=== PATIENT | male | born 1940 | race Caucasian/White ===

== ENCOUNTER 2016-09-17 11:23 | Outpatient (CLI) | payer MEDICARE, BC | END 2016-09-17 11:24 | disposition home or self-care (01) | DX: E11.9 Type 2 diabetes mellitus without complications (principal); E78.2 Mixed hyperlipidemia ==

== ENCOUNTER 2017-02-04 08:00 | Outpatient (CLI) | payer MEDICARE, BC ==
[2017-02-04 19:24] LABS: BUN - BLOOD UREA NITROGEN 18 mg/dL (6-20); CALCIUM 9.7 mg/dL (8.5-10.3); CARBON DIOXIDE - CO2 28 mmol/L (21-32); CHLORIDE 95 mmol/L (101-111); CHOL/HDL RATIO 5.4 (<5.0); CHOLESTEROL 209 mg/dL; GFR - MDRD 72 (>89); GLUCOSE 146 mg/dL (70-100); HDL CHOLESTEROL 39 mg/dL; LDL/HDL RATIO 3.2 (<3.6); POTASSIUM 4.1 mmol/L (3.5-5.0); SODIUM 132 mmol/L (135-145); TRIGLYCERIDES 233 mg/dL; VLDL CHOLESTEROL 47 mg/dL
[2017-02-04 19:58] LABS: HEMOGLOBIN A1C 0.76 g/dL
== END 2017-02-04 08:01 | disposition home or self-care (01) ==
LOC: LAB.F 08:00
PROVIDERS: ATTEND Internal Medicine
DX: I10 Essential (primary) hypertension (principal); E78.2 Mixed hyperlipidemia; E11.65 Type 2 diabetes mellitus with hyperglycemia
CPT/HCPCS: 36415; 80048; 80061; 83036

== ENCOUNTER 2017-09-18 10:50 | Outpatient (CLI) | payer MEDICARE, BC ==
[2017-09-18 18:05] LABS: ALBUMIN/GLOBULIN RATIO 1.2 (1.0-2.2); ALKALINE PHOSPHATASE 49 IU/L (42-121); ALT ALANINE AMINOTRANSFERASE 11 IU/L (10-60); AST ASPARTATE AMINOTRANSFERASE 19 IU/L (10-42); BILIRUBIN,TOTAL 0.9 mg/dL (0.2-1.0); BUN - BLOOD UREA NITROGEN 19 mg/dL (6-20); CALCIUM 9.4 mg/dL (8.5-10.3); CARBON DIOXIDE - CO2 28 mmol/L (21-32); CHLORIDE 93 mmol/L (101-111); CHOL/HDL RATIO 5.3 (<5.0); CHOLESTEROL 191 mg/dL; CREATININE 0.9 mg/dL (0.6-1.2); GFR - MDRD 82 (>89); GLUCOSE 151 mg/dL (70-100); HDL CHOLESTEROL 36 mg/dL; LDL CHOLESTEROL,CALCULATED 115 mg/dL; LDL/HDL RATIO 3.2 (<3.6); SODIUM 130 mmol/L (135-145); TOTAL PROTEIN 7.4 g/dL (6.7-8.2); VLDL CHOLESTEROL 40 mg/dL
[2017-09-18 18:08] LABS: HB2 TOTAL 12.6 g/dL; HEMOGLOBIN A1C 0.74 g/dL; HEMOGLOBIN A1C % 7.5 % (4.6-6.2)
== END 2017-09-18 10:51 | disposition home or self-care (01) ==
LOC: LAB.F 10:50
PROVIDERS: ATTEND Internal Medicine
DX: E11.65 Type 2 diabetes mellitus with hyperglycemia (principal)
CPT/HCPCS: 36415; 80053; 80061; 83036; 83721; 84443

== ENCOUNTER 2018-08-26 10:30 | Outpatient (CLI) | payer MEDICARE, BC ==
[2018-08-26 17:58] LABS: CREATININE,URINE 92.1 mg/dL; MICROALBUM/CREATININE RATIO,UR 236.7 ug/mg (<30.0); MICROALBUMIN,URINE 21.8 mg/dL (0-300.0)
[2018-08-26 18:04] LABS: ALBUMIN/GLOBULIN RATIO 1.2 (1.0-2.2); ALKALINE PHOSPHATASE 52 IU/L (42-121); ALT ALANINE AMINOTRANSFERASE 14 IU/L (10-60); AST ASPARTATE AMINOTRANSFERASE 23 IU/L (10-42); BILIRUBIN,TOTAL 0.8 mg/dL (0.2-1.0); BUN - BLOOD UREA NITROGEN 19 mg/dL (6-20); CALCIUM 9.5 mg/dL (8.5-10.3); CARBON DIOXIDE - CO2 27 mmol/L (21-32); CHLORIDE 94 mmol/L (101-111); CHOL/HDL RATIO 5.8 (<5.0); CHOLESTEROL 207 mg/dL; CREATININE 1.1 mg/dL (0.6-1.2); GFR - MDRD 65 (>89); GLUCOSE 190 mg/dL (70-100); HDL CHOLESTEROL 36 mg/dL; LDL CHOLESTEROL,CALCULATED 110 mg/dL; LDL/HDL RATIO 3.1 (<3.6); SODIUM 129 mmol/L (135-145); TOTAL PROTEIN 7.3 g/dL (6.7-8.2); VLDL CHOLESTEROL 61 mg/dL
[2018-08-26 18:45] LABS: HEMOGLOBIN A1C 0.64 g/dL
== END 2018-08-26 10:31 | disposition home or self-care (01) ==
LOC: LAB.F 10:30
PROVIDERS: ATTEND Internal Medicine
DX: E11.65 Type 2 diabetes mellitus with hyperglycemia (principal)
CPT/HCPCS: 36415; 80053; 80061; 82043; 82570; 83036; 83721

== ENCOUNTER 2018-09-03 12:59 | Outpatient (CLI) | payer MEDICARE, BC ==
--- NOTE | 2018-09-03 15:40 | XRAY Report ---
Reason: COUGH Procedure Date: 09/03/2018 Accession Number: [id number] / [id number] Procedure: XR - Chest 2 View X-Ray CPT Code: 00159 FULL RESULT: EXAM: CHEST RADIOGRAPHY EXAM DATE: 09/03/2018 01:11 PM. CLINICAL HISTORY: Cough. COMPARISON: XR CHEST PA AND LAT 07/16/2012 1:00 PM. TECHNIQUE: 2 views. FINDINGS: Lungs/Pleura: No focal opacities evident. No pleural effusion. No pneumothorax. Relatively high lung volumes with flat diaphragms, with obstructive lung disease. Mediastinum: Heart and mediastinal contours are unremarkable. Other: None. IMPRESSION: No lobar consolidation. Appearance of the lungs is suggestive of COPD. RADIA
== END 2018-09-03 13:00 | disposition home or self-care (01) ==
LOC: DI 12:59
PROVIDERS: ATTEND Internal Medicine
DX: R05 Cough (principal)
CPT/HCPCS: 71046

== ENCOUNTER 2019-04-13 17:23 | Outpatient (CLI) | payer MEDICARE, BC ==
[2019-04-13 18:38] LABS: BASOPHILS # (AUTO) 0.1 10^3/uL (0.0-0.1); BASOPHILS % (AUTO) 1.2 %; EOSINOPHILS % (AUTO) 0.5 %; LYMPHOCYTES # (AUTO) 1.4 10^3/uL (1.5-3.5); LYMPHOCYTES % (AUTO) 18.6 %; MEAN CORPUSCULAR HEMOGLOBIN 18.3 pg (27.0-31.0); MEAN CORPUSCULAR HGB CONC 27.3 g/dL (32.0-36.0); MEAN CORPUSCULAR VOLUME 66.8 fL (80.0-94.0); MEAN PLATELET VOLUME 9.1 fL (7.4-11.4); MONOCYTES # (AUTO) 0.6 10^3/uL (0.0-1.0); MONOCYTES % (AUTO) 7.6 %; NEUTROPHILS # (AUTO) 5.4 10^3/uL (1.5-6.6); NEUTROPHILS % (AUTO) 71.6 %; PLT - PLATELET COUNT 371 10^3/uL (130-450); RED BLOOD COUNT 3.67 10^6/uL (4.70-6.10); RED CELL DISTRIBUTION WIDTH 18.6 % (12.0-15.0); WHITE BLOOD COUNT 7.5 x10^3/uL (4.8-10.8)
[2019-04-13 18:52] LABS: HGB - HEMOGLOBIN 6.7 g/dL (14.0-18.0)
[2019-04-13 19:10] LABS: ALBUMIN 4.3 g/dL (3.2-5.5); ALBUMIN/GLOBULIN RATIO 1.2 (1.0-2.2); BILIRUBIN,TOTAL 0.6 mg/dL (0.2-1.0); CALCIUM 9.9 mg/dL (8.5-10.3); CREATININE 1.2 mg/dL (0.6-1.2); TOTAL PROTEIN 7.8 g/dL (6.7-8.2)
[2019-04-13 19:34] LABS: HB2 TOTAL 6.5 g/dL; HEMOGLOBIN A1C 0.53 g/dL; HEMOGLOBIN A1C % 9.6 % (4.6-6.2)
--- NOTE | 2019-04-14 12:46 | XRAY Report ---
Reason: SUPRAVENTRICULAR TACHYCARDIA,CODP Procedure Date: 04/13/2019 Accession Number: [id number] / [id number] Procedure: XR - Chest 2 View X-Ray CPT Code: 94993 Final Report FULL RESULT: EXAM: CHEST RADIOGRAPHY EXAM DATE: 04/13/2019 05:35 PM. CLINICAL HISTORY: Supraventricular tachycardia, CODP. COMPARISON: CHEST 2 VIEW 09/03/2018 1:04 PM XR CHEST PA AND LAT 07/16/2012 1:00 PM. TECHNIQUE: 2 views. FINDINGS: Lungs/Pleura: Stable mild hyperinflation. No pulmonary infiltrates or new or acute focal densities. No pleural effusion. No pneumothorax. Mediastinum: Heart and mediastinal contours are unremarkable. Other: Degenerative disease of the spine redemonstrated. IMPRESSION: 1. No acute abnormality or significant change demonstrated. 2. Pulmonary hyperinflation redemonstrated. RADIA
== END 2019-04-13 17:24 | disposition home or self-care (01) ==
LOC: DI 17:23
PROVIDERS: ATTEND Family Medicine
DX: I47.1 Supraventricular tachycardia (principal); J44.9 Chronic obstructive pulmonary disease, unspecified; E11.51 Type 2 diabetes mellitus with diabetic peripheral angiopathy without gangrene; I25.10 Atherosclerotic heart disease of native coronary artery without angina pectoris; R05 Cough; E78.2 Mixed hyperlipidemia; R03.0 Elevated blood-pressure reading, without diagnosis of hypertension
CPT/HCPCS: 71046; 80053; 82550; 83036; 83880; 84443; 84484; 85025

== ENCOUNTER 2021-04-05 12:49 | Outpatient (CLI) | payer MEDICARE, BC ==
[2021-04-05 19:58] LABS: BASOPHILS # (AUTO) 0.1 10^3/uL (0.0-0.1); EOSINOPHILS # (AUTO) 0.1 10^3/uL (0.0-0.7); EOSINOPHILS % (AUTO) 0.7 %; HCT - HEMATOCRIT 34.4 % (42.0-52.0); HGB - HEMOGLOBIN 10.1 g/dL (14.0-18.0); LYMPHOCYTES # (AUTO) 1.7 10^3/uL (1.5-3.5); LYMPHOCYTES % (AUTO) 24.3 %; MEAN CORPUSCULAR HEMOGLOBIN 22.4 pg (27.0-31.0); MEAN CORPUSCULAR HGB CONC 29.4 g/dL (32.0-36.0); MEAN CORPUSCULAR VOLUME 76.4 fL (80.0-94.0); MEAN PLATELET VOLUME 10.4 fL (7.4-11.4); MONOCYTES # (AUTO) 0.5 10^3/uL (0.0-1.0); MONOCYTES % (AUTO) 7.6 %; NEUTROPHILS # (AUTO) 4.7 10^3/uL (1.5-6.6); NEUTROPHILS % (AUTO) 66.1 %; PLT - PLATELET COUNT 328 10^3/uL (130-450); RED CELL DISTRIBUTION WIDTH 17.2 % (12.0-15.0); WHITE BLOOD COUNT 7.1 x10^3/uL (4.8-10.8)
[2021-04-05 20:12] LABS: ALBUMIN 4.2 g/dL (3.2-5.5); ALBUMIN/GLOBULIN RATIO 1.2 (1.0-2.2); ALKALINE PHOSPHATASE 48 IU/L (42-121); ALT ALANINE AMINOTRANSFERASE 13 IU/L (10-60); AST ASPARTATE AMINOTRANSFERASE 18 IU/L (10-42); BUN - BLOOD UREA NITROGEN 20 mg/dL (6-20); CALCIUM 9.6 mg/dL (8.5-10.3); CARBON DIOXIDE - CO2 28 mmol/L (21-32); CHLORIDE 95 mmol/L (101-111); CHOL/HDL RATIO 5.9 (<5.0); CHOLESTEROL 219 mg/dL; CREATININE 1.1 mg/dL (0.6-1.2); GFR - MDRD 64 (>89); GLUCOSE 203 mg/dL (70-100); HDL CHOLESTEROL 37 mg/dL; LDL CHOLESTEROL,CALCULATED 120 mg/dL; LDL/HDL RATIO 3.2 (<3.6); POTASSIUM 3.8 mmol/L (3.5-5.0); SODIUM 133 mmol/L (135-145); TOTAL PROTEIN 7.6 g/dL (6.7-8.2); TRIGLYCERIDES 308 mg/dL; VLDL CHOLESTEROL 62 mg/dL
[2021-04-05 20:20] LABS: ESTIMATED AVERAGE GLUCOSE 223 mg/dL (70-100); HEMOGLOBIN A1c% 9.4 % (4.27-6.07)
== END 2021-04-05 12:50 | disposition home or self-care (01) ==
LOC: LAB.S 12:49
PROVIDERS: ATTEND Internal Medicine
DX: I10 Essential (primary) hypertension (principal); E78.2 Mixed hyperlipidemia; E11.9 Type 2 diabetes mellitus without complications; Z12.5 Encounter for screening for malignant neoplasm of prostate
CPT/HCPCS: 36415; 80053; 80061; 83036; 85025; G0103; 83721; 84153

== ENCOUNTER 2022-06-04 11:42 | Outpatient (CLI) | payer MEDICARE, BC | END 2022-06-04 11:43 | disposition home or self-care (01) | LOC: LAB.S 11:42 | PROVIDERS: ATTEND Registered Nurse | DX: E11.8 Type 2 diabetes mellitus with unspecified complications (principal); D62 Acute posthemorrhagic anemia; R97.20 Elevated prostate specific antigen [PSA] | CPT/HCPCS: 36415; 84153 ==

== ENCOUNTER 2022-10-08 00:52 | Emergency (ER) | payer MEDICARE, BC ==
[2022-10-08 01:24] LABS: BILIRUBIN,URINE NEGATIVE (NEGATIVE); GLUCOSE, URINE (UA) 500 mg/dL (NEGATIVE); KETONES,URINE (UA) NEGATIVE (NEGATIVE); LEUKOCYTE ESTERASE, URINE MODERATE (NEGATIVE); NITRITE,URINE NEGATIVE (NEGATIVE); OCCULT BLOOD,URINE LARGE (NEGATIVE); PH,URINE 6.5 PH (5.0-7.5); PROTEIN,URINE 100 mg/dL (NEGATIVE); UROBILINOGEN,URINE 1 (NORMAL) E.U./dL (NORMAL)
[2022-10-08 01:29] LABS: CLARITY,URINE SL. CLOUDY (CLEAR)
[2022-10-08 01:33] LABS: BACTERIA,URINE Few /HPF (None Seen); RBC,URINE TNTC /HPF (0-5); SQUAMOUS EPITHELIAL CELL,UR RARE Squamous (<= Few)
[2022-10-08 03:24] LABS: BASOPHILS # (AUTO) 0.1 10^3/uL (0.0-0.1); BASOPHILS % (AUTO) 0.6 %; EOSINOPHILS # (AUTO) 0.1 10^3/uL (0.0-0.7); EOSINOPHILS % (AUTO) 0.5 %; HCT - HEMATOCRIT 43.9 % (42.0-52.0); HGB - HEMOGLOBIN 14.6 g/dL (14.0-18.0); LYMPHOCYTES # (AUTO) 1.6 10^3/uL (1.5-3.5); LYMPHOCYTES % (AUTO) 15.1 %; MEAN CORPUSCULAR HEMOGLOBIN 29.6 pg (27.0-31.0); MEAN CORPUSCULAR HGB CONC 33.3 g/dL (32.0-36.0); MEAN CORPUSCULAR VOLUME 88.9 fL (80.0-94.0); MEAN PLATELET VOLUME 10.1 fL (7.4-11.4); MONOCYTES # (AUTO) 0.7 10^3/uL (0.0-1.0); MONOCYTES % (AUTO) 6.8 %; NEUTROPHILS # (AUTO) 7.9 10^3/uL (1.5-6.6); NEUTROPHILS % (AUTO) 76.6 %; PLT - PLATELET COUNT 258 10^3/uL (130-450); RED BLOOD COUNT 4.94 10^6/uL (4.70-6.10); RED CELL DISTRIBUTION WIDTH 12.4 % (12.0-15.0); WHITE BLOOD COUNT 10.4 x10^3/uL (4.8-10.8)
[2022-10-08 03:28] LABS: PT - PROTHROMBIN TIME 10.9 secs (9.9-12.6)
[2022-10-08 03:33] LABS: ALBUMIN 3.9 g/dL (3.2-5.5); ALBUMIN/GLOBULIN RATIO 1.1 (1.0-2.2); BILIRUBIN,TOTAL 0.8 mg/dL (0.2-1.0); CALCIUM 9.6 mg/dL (8.5-10.3); POTASSIUM 3.9 mmol/L (3.5-5.0); TOTAL PROTEIN 7.6 g/dL (6.7-8.2)
--- NOTE | 2022-10-08 03:34 | ED Physician Documentation ---
History of Present Illness - Stated complaint Stated Complaint: MALE - Chief complaint Chief Complaint: Abd Pain - Additonal information Additional information: Patient 82-year-old male presenting to the emergency department with chief co mplaints of of testicular pain and hematuria. Accompanied by son who is present at bedside. Reports intermittent episodes of hematuria for the last few days. States 4 days ago he began having sharp pain in his right testicle. Since that time has had small amounts of blood in urine however today blood became more notable with passage of clots. Denies use of blood thinning medications. Reports has not been to a physician for several years.Past medical history significant for hypertension, dyslipidemia, coronary artery disease, type 2 diabetes, gastric reflux Review of Systems Constitutional: denies: Fever, Fatigue, Weight Loss Eyes: denies: Loss of vision Ears: denies: Loss of hearing Nose: denies: Rhinorrhea / runny nose Throat: denies: Dental pain / toothache Cardiac: denies: Chest pain / pressure Respiratory: denies: Dyspnea GI: denies: Abdominal Pain, Nausea, Vomiting : reports: Dysuria, Frequency, Hematuria, Testicular pain PD PAST MEDICAL HISTORY - Past Medical History Past Medical History: Yes Cardiovascular: Hypertension, High cholesterol, Coronary artery disease, [place] Respiratory: COPD Neuro: Migraines Endocrine/Autoimmune: Type 2 diabetes GI: GERD : None HEENT: None Psych: None Musculoskeletal: None - Past Surgical History Past Surgical History: Yes General: Cholecystectomy, Colonoscopy, EGD - Present Medications Home Medications: Ambulatory Orders Medication Instructions Recorded Confirmed Ascorbic Acid [Vitamin C] 500 mg PO DAILY 04/18/19 10/08/22 Chlorthalidone 12.5 mg PO DAILY 04/18/19 10/08/22 Cholecalciferol (Vitamin D3) 1,000 units PO DAILY 04/18/19 10/08/22 [Vitamin D3] Esomeprazole Magnesium [Nexium] 20 mg PO QDAC 04/18/19 10/08/22 Ginkgo Biloba [place] Extract [Ginkgo 240 mg PO BID 04/18/19 10/08/22 Biloba] Losartan Potassium 100 mg PO DAILY 04/18/19 10/08/22 Metoprolol Succinate 50 mg PO BID 04/18/19 10/08/22 Multivitamin [Theragran] 1 tab PO DAILY 04/18/19 10/08/22 Saw [place] 1 cap PO DAILY 04/18/19 10/08/22 Ferrous Sulfate 325 mg PO DAILY #30 tablet 04/19/19 10/08/22 SITagliptin [Januvia] 100 mg PO DAILY 10/08/22 10/08/22 levoFLOXacin [Levofloxacin] 500 mg PO DAILY #10 tablet 10/08/22 - Allergies Allergies/Adverse Reactions: Allergies Allergy/AdvReac Type Severity Reaction Status Date / Time eptifibatide Allergy Unknown Verified 10/08/22 01:05 [From Integrilin] oxycodone Allergy Unknown Verified 10/08/22 01:05 Sulfa (Sulfonamide Allergy Unknown Verified 10/08/22 01:05 Antibiotics) - Social History Does the pt smoke?: No Smoking Status: Never smoker Does the pt drink ETOH?: Yes Does the pt have substance abuse?: No - Immunizations Immunizations are current?: Yes - POLST Patient has POLST: No POLST Status: Full Code PD ED PE NORMAL - General General: Alert and oriented X 3, No acute distress, Well developed/nourished - HEENT HEENT: Atraumatic, PERRL, EOMI, Ears normal, Moist mucous membranes - Neck Neck: Supple, no meningeal sign, No bony TTP, No adenopathy, Thyroid normal - Cardiac Cardiac: RRR, No murmur, No gallop, No rub, Strong equal pulses - Respiratory Respiratory: No respiratory distress, Clear bilaterally - Abdomen Abdomen: Normal bowel sounds - Male Male : Broke Beater Operator present, Other (Right testicular tenderness to palpation. Normal testicular lie. Normal cremasteric reflex.) - Rectal Rectal: Deferred - Back Back: No CVA TTP - Derm Derm: Normal color - Extremities Extremities: No deformity - Neuro Neuro: Alert and oriented X 3, sales order administrator 2-12 intact, No motor deficit, No sensory deficit, Normal speech - Psych Psych: Normal mood Results - Vitals Vitals: Vital Signs - 24 hr 10/08/22 10/08/22 10/08/22 00:59 03:15 03:35 Temperature 36.7 C 36.9 C Heart Rate 70 73 69 Respiratory 16 16 16 Rate Blood Pressure 176/75 H 169/71 H 165/72 H O2 Saturation 100 98 96 10/08/22 10/08/22 10/08/22 05:25 05:47 06:56 Temperature 36.8 C Heart Rate 72 77 73 Respiratory 15 17 11 L Rate Blood Pressure 146/63 H 157/77 H 156/78 H O2 Saturation 99 96 98 Oxygen O2 Source Room air - Labs Labs: Laboratory Tests 10/08/22 10/08/22 10/08/22 01:13 03:16 03:16 WBC 10.4 RBC 4.94 Hgb 14.6 Hct 43.9 MCV 88.9 MCH 29.6 MCHC 33.3 RDW 12.4 Plt Count 258 MPV 10.1 Neut # (Auto) 7.9 H Lymph # (Auto) 1.6 [place] # (Auto) 0.7 Eos # (Auto) 0.1 Baso # (Auto) 0.1 Absolute Nucleated RBC 0.00 Nucleated RBC % 0.0 PT 10.9 INR 1.0 Sodium Potassium Chloride Carbon Dioxide Anion Gap BUN Creatinine Estimated GFR (MDRD) Glucose Calcium Total Bilirubin AST ALT Alkaline Phosphatase Total Protein Albumin Globulin Albumin/Globulin Ratio Lipase Urine Color DARK YELLOW Urine Clarity SL. CLOUDY Urine pH 6.5 Ur Specific [place] 1.020 Urine Protein 100 H Urine Glucose (UA) 500 H Urine Ketones NEGATIVE Urine Occult Blood LARGE H Urine Nitrite NEGATIVE Urine Bilirubin NEGATIVE Urine Urobilinogen 1 (NORMAL) Ur Leukocyte Esterase MODERATE H Urine RBC TNTC H Urine WBC 11-25 H Ur Squamous Epith Cells RARE Squamous Urine Bacteria Few Ur Microscopic Review INDICATED Urine Culture Comments INDICATED 10/08/22 03:16 WBC RBC Hgb Hct MCV MCH MCHC RDW Plt Count MPV Neut # (Auto) Lymph # (Auto) [place] # (Auto) Eos # (Auto) Baso # (Auto) Absolute Nucleated RBC Nucleated RBC % PT INR Sodium 133 L Potassium 3.9 Chloride 96 L Carbon Dioxide 26 Anion Gap 11.0 BUN 26 H Creatinine 1.4 H Estimated GFR (MDRD) 48 L Glucose 305 H Calcium 9.6 Total Bilirubin 0.8 AST 19 ALT 15 Alkaline Phosphatase 72 Total Protein 7.6 Albumin 3.9 Globulin 3.7 Albumin/Globulin Ratio 1.1 Lipase 34 Urine Color Urine Clarity Urine pH Ur Specific [place] Urine Protein Urine Glucose (UA) Urine Ketones Urine Occult Blood Urine Nitrite Urine Bilirubin Urine Urobilinogen Ur Leukocyte Esterase Urine RBC Urine WBC Ur Squamous Epith Cells Urine Bacteria Ur Microscopic Review Urine Culture Comments PD Medical Decision Making - ED course Complexity details: reviewed results, re-evaluated patient, d/w patient, d/w family, d/w it solutions sales consultant ED course: Patient 82-year-old male presenting to the emergency department with gross hematuria and right-sided testicular pain. Afebrile, hemodynamically stable on arrival to the emergency department. Urine analysis with clear and gross hematuria. Testicular exam demonstrated tenderness to the right testis with normal cremasteric reflex and normal testicular lie. Urogenital exam otherwise benign. Abdominal exam otherwise benign. CT of the abdomen pelvis demonstrates enlarged prostate as well as irregularities in the bladder wall possibly representing cystitis versus tumor. Patient did have minimal leukocytosis in his UA. Urine analysis was also notable for proteinuria. Labs obtained did not demonstrate a significant leukocytosis, anemia or abnormalities in coagulation profile however patient did have a very minimal elevation in creatinine of 1.4 in comparison to his most previous which was greater than 2 years ago and at that time had creatinine of 1.1. No other significant electrolyte abnormalities or indications of organ dysfunction. Incidentally noted a nonspecific and previously unidentified chest mass. All findings discussed with patient and patient's son. Discussed bladder irrigation which the patient refused. Discussed the possibility for bladder carcinoma as well as the newly identified chest mass possibly representing pulmonary neoplasm. After discussing these findings patient reported that he would wish for treatment and in lieu of that I did order for a CT scan of his chest which is pending at this time. Given his testicular tenderness I did order for ultrasonography which demonstr ated right-sided epididymitis. I have sent prescription for levofloxacin to his preferred pharmacy. I will be signing him out to the oncoming physician pending formal read on the CT scan of his chest. Departure - Departure Clinical Impression: Hematuria, Acute epididymitis, Renal insufficiency Prescriptions: levoFLOXacin [Levofloxacin] 500 mg PO DAILY #10 tablet
[2022-10-08 03:40] LABS: CREATININE 1.4 mg/dL (0.6-1.2)
[2022-10-08] MEDS ORDERED: SODIUM CHLORIDE 0.9% 500 ML IV STA (04:34)
[2022-10-08] MEDS ORDERED: cefTRIAXone 1 GM in SODIUM CHLORIDE 0.9% MINIBAG 100 ML IV STA (04:34)
[2022-10-08] MEDS ORDERED: cefTRIAXone 1 GM VIAL ONE (05:09)
[2022-10-08] MEDS ORDERED: iohexoL-300 100 ML VIAL ONE (06:01)
[2022-10-08 08:09] VITALS: BP 188/86
--- NOTE | 2022-10-08 08:24 | Ultrasound Report ---
PROCEDURE: Testicle w/Doppler INDICATIONS: Rt testicular pain TECHNIQUE: Real-time scanning was performed of the scrotum and testicles, with image documentation. Color and p ulse Doppler interrogation was performed of both testicles. COMPARISON: None. FINDINGS: Right: Testicle is normal in size at 3.9 x 2.4 x 3.0 cm, and homogenous in echotexture. Epididymal c yst measuring 7mm is present. Increased vascularity is present within the epididymis. No hydrocele. V aricocele is present. Overlying scrotal skin is normal in thickness. Left: Testicle is normal in size at 4.1 x 2.4 x 2.9 cm, and homogeneous in echotexture. Epididymal c yst measuring 5 mm is present. No hydrocele. Varicocele is present. Overlying scrotal skin is normal in thickness. Doppler: Color and pulse Doppler demonstrate normal and symmetric arterial flow in both testicles. IMPRESSION: Increased epididymal vascularity on the right suggestive of epididymitis. Bilateral epididymal cysts. No torsion is present time exam. Intermittent torsion cannot be excluded. The above findings are concordant with preliminary report. Reviewed by: Sofi Garcia MD on 10/08/2022 8:23 AM PDT Approved by: Sofi Garcia MD on 10/08/2022 8:23 AM PDT Station ID: [id number]
[2022-10-08] MEDS ORDERED: levoFLOXacin 250 MG TABLET PO STA (08:42)
--- NOTE | 2022-10-08 08:43 | ED Physician Documentation ---
ED Addendum - Addendum Addendum: 10/08/22 08:43 Signed out to me by Dr. Smith at shift change. This is an 82-year-old gentleman presented with testicular pain and hematuria and was found to have epididymitis. But further imaging also demonstrated a concern for lung cancer and a bladder mass. This was all discussed with the patient and his son at the bedside. They understand the need for follow-up with his PCP for referrals for urology, potentially nephrology and pulmonology plus or minus a PET/CT. Patient and son verbalized understanding. Disposition: Discharged home Condition: Stable Diagnosis: 1. Lung mass 2. Epididymitis 3. Hematuria 4. Bladder wall thickening 5. Uncontrolled blood sugars
--- NOTE | 2022-10-08 09:52 | CT Report ---
PROCEDURE: CHEST W INDICATIONS: Lung mass CONTRAST: 100ml Omnipaque 300 TECHNIQUE: After the administration of intravenous contrast, 1 mm axial images were acquired from the pulmonary apices through the posterior costophrenic angles. Axial 5 mm soft tissue kernel reconstructions were performed as well as 8 mm axial MIP and coronal and sagittal 5 mm reformations. For radiation dose reduction, the following was used: automated exposure control, adjustment of mA and/or kV according to patient size. COMPARISON: Chest x-ray, 04/13/2019. FINDINGS: Image quality: Excellent. Lungs and pleura: There is a spiculated cavitary mass in the right middle lobe measuring 3.6 x 2.4 cm , suspicious for primary lung cancer. No consolidation. No pleural effusions. No pneumothorax. No suspicious pulmonary nodules which requi re follow up. Mediastinum: Heart size is normal. No pericardial effusions. Moderate coronary calcification. No medi astinal adenopathy by size criteria. No large vessel abnormality. Chest wall and lower neck: Thyroid is unremarkable. No axillary or supraclavicular adenopathy by size . Bones: No aggressive osseous abnormality. Upper Abdomen: Unremarkable. IMPRESSION: 1. A 3.6 x 2.4 cm spiculated cavitary mass in the right middle lobe suspicious for primary lung cance r. Differential diagnoses are infectious or inflammatory mass. Recommend PET/CT for further evaluatio n. If clinically indicated, the mass is amenable for CT-guided percutaneous biopsy. 2. No mediastinal or hilar lymphadenopathy. No significant discrepancy with the preliminary interpretation. Reviewed by: Sai Vincent MD on 10/08/2022 9:51 AM PDT Approved by: Sai Vincent MD on 10/08/2022 9:51 AM PDT Station ID: [id number]
--- NOTE | 2022-10-08 09:59 | CT Report ---
PROCEDURE: ABDOMEN/PELVIS WO INDICATIONS: Evaluate left kidney stone TECHNIQUE: Noncontrast 5 mm thick sections acquired from the diaphragms to the symphysis. 5 mm coronal and sagi ttal reformats were then performed. For radiation dose reduction, the following was used: automated exposure control, adjustment of mA and/or kV according to patient size. COMPARISON: None. FINDINGS: Image quality: Excellent. Kidneys and ureters: No hydronephrosis. No renal cystic lesion which requires follow up. No solid mas s. Bilateral perinephric stranding. Bladder: Mild stranding around the bladder suspicious for cystitis. Bladder wall is minimally thicken ed. No calcified bladder stones. No filling defect within the opacified bladder. Prostate is enlarge d. OTHER: Lung bases and heart: Partial visualization of a right middle lobe mass measuring approximately 3.3 x 2.2 cm. Liver: No solid mass. Gallbladder and biliary tree: Gallbladder is surgically absent. No intrahepatic or intrahepatic bilia ry dilation. Spleen: No splenomegaly. Pancreas: No pancreatic ductal dilation. Adrenals: No adrenal nodule. Bowel and peritoneum: No bowel distension. No pathologic free fluid. Diverticulosis without acute div erticulitis or Lymph nodes: No central or retroperitoneal adenopathy. There are numerous small subcentimeter retrope ritoneal lymph nodes, most likely reactive. Vessels: No infrarenal aortic aneurysm. Reproductive organs: Unremarkable. Pelvic lymph nodes: No adenopathy by size criteria. Bones: No aggressive osseous abnormality. Other: No significant ventral or inguinal hernia. IMPRESSION: 1. No hydroneprosis or obstructing renal stone. 2. Mild stranding around the urinary bladder suspicious for cystitis. Please correlate with urinalysi s. 3. Enlarged prostate. 4. Partial visualization of a right middle lobe lung mass concerning for primary lung cancer. Recomme nd chest CT for follow-up evaluation. Comparison to prior outside CT, if available, would be helpful. 5. Diverticulosis without acute diverticulitis. No significant discrepancy with the primary interpretation Reviewed by: Sai Vincent MD on 10/08/2022 9:58 AM PDT Approved by: Sai Vincent MD on 10/08/2022 9:58 AM PDT Station ID: [id number]
[2022-10-08] MEDS ORDERED: iohexoL-300 100 ML VIAL IVP ONE (13:01)
== END 2022-10-08 08:57 | disposition home or self-care (01) ==
LOC: ED 00:52
DX: R31.0 Gross hematuria (principal); N40.1 Benign prostatic hyperplasia with lower urinary tract symptoms; R35.0 Frequency of micturition; N45.1 Epididymitis; N28.9 Disorder of kidney and ureter, unspecified; R91.8 Other nonspecific abnormal finding of lung field; N32.89 Other specified disorders of bladder
CPT/HCPCS: 36415; 71260; 74176; 76870; 80053; 81001; 83690; 85025; 85610; 87086; 93975; 96365; 99284; A9270; Q9967; 81003

== ENCOUNTER 2023-05-14 13:21 | Outpatient (CLI) | payer MEDICARE, BC ==
[2023-05-14 19:58] LABS: BASOPHILS # (AUTO) 0.1 10^3/uL (0.0-0.1); BASOPHILS % (AUTO) 0.7 %; EOSINOPHILS # (AUTO) 0.1 10^3/uL (0.0-0.7); HCT - HEMATOCRIT 44.5 % (42.0-52.0); HGB - HEMOGLOBIN 14.8 g/dL (14.0-18.0); LYMPHOCYTES # (AUTO) 1.3 10^3/uL (1.5-3.5); LYMPHOCYTES % (AUTO) 18.5 %; MEAN CORPUSCULAR HGB CONC 33.3 g/dL (32.0-36.0); MEAN CORPUSCULAR VOLUME 87.3 fL (80.0-94.0); MEAN PLATELET VOLUME 11.5 fL (7.4-11.4); MONOCYTES # (AUTO) 0.6 10^3/uL (0.0-1.0); MONOCYTES % (AUTO) 8.1 %; NEUTROPHILS # (AUTO) 5.1 10^3/uL (1.5-6.6); NEUTROPHILS % (AUTO) 71.3 %; PLT - PLATELET COUNT 197 10^3/uL (130-450); RED CELL DISTRIBUTION WIDTH 12.5 % (12.0-15.0); WHITE BLOOD COUNT 7.2 x10^3/uL (4.8-10.8)
[2023-05-14 20:11] LABS: ALBUMIN/GLOBULIN RATIO 1.2 (1.0-2.2); ALKALINE PHOSPHATASE 75 IU/L (42-121); ALT ALANINE AMINOTRANSFERASE 12 IU/L (10-60); AST ASPARTATE AMINOTRANSFERASE 15 IU/L (10-42); BILIRUBIN,TOTAL 1.2 mg/dL (0.2-1.0); BUN - BLOOD UREA NITROGEN 31 mg/dL (6-20); CALCIUM 9.7 mg/dL (8.5-10.3); CARBON DIOXIDE - CO2 29 mmol/L (21-32); CHLORIDE 96 mmol/L (101-111); CHOLESTEROL 221 mg/dL; CREATININE 1.6 mg/dL (0.6-1.3); GFR - MDRD 41 (>89); GLUCOSE 384 mg/dL (74-104); HDL CHOLESTEROL 37 mg/dL; POTASSIUM 3.8 mmol/L (3.5-4.5); SODIUM 132 mmol/L (135-145); TOTAL PROTEIN 7.3 g/dL (6.4-8.9); TRIGLYCERIDES 408 mg/dL (48-352)
[2023-05-14 20:26] LABS: THYROID STIMULATING HORMONE 2.19 uIU/mL (0.34-5.60)
[2023-05-14 20:29] LABS: LDL CHOLESTEROL,DIRECT 120 mg/dL (75-193); LDLD/HDL RATIO 3.2 (<3.6)
[2023-05-14 20:54] LABS: ESTIMATED AVERAGE GLUCOSE 295 mg/dL (70-100); HEMOGLOBIN A1c% 11.9 % (4.27-6.07)
== END 2023-05-14 13:22 | disposition home or self-care (01) ==
LOC: LAB.S 13:21
PROVIDERS: ATTEND Registered Nurse
DX: E78.2 Mixed hyperlipidemia (principal); Z79.899 Other long term (current) drug therapy; E11.8 Type 2 diabetes mellitus with unspecified complications
CPT/HCPCS: 36415; 80053; 80061; 83036; 83721; 84443; 85025

== ENCOUNTER 2023-09-19 14:24 | Inpatient (IN) | payer MEDICARE, BC ==
[2023-09-19 15:01] LABS: BASOPHILS # (AUTO) 0.1 10^3/uL (0.0-0.1); BASOPHILS % (AUTO) 0.7 %; EOSINOPHILS % (AUTO) 0.3 %; HCT - HEMATOCRIT 30.3 % (42.0-52.0); HGB - HEMOGLOBIN 10.4 g/dL (14.0-18.0); LYMPHOCYTES # (AUTO) 1.4 10^3/uL (1.5-3.5); LYMPHOCYTES % (AUTO) 15.1 %; MEAN CORPUSCULAR HGB CONC 34.3 g/dL (32.0-36.0); MEAN CORPUSCULAR VOLUME 87.3 fL (80.0-94.0); MEAN PLATELET VOLUME 10.8 fL (7.4-11.4); MONOCYTES # (AUTO) 0.6 10^3/uL (0.0-1.0); MONOCYTES % (AUTO) 6.3 %; NEUTROPHILS % (AUTO) 76.9 %; PLT - PLATELET COUNT 227 10^3/uL (130-450); RED BLOOD COUNT 3.47 10^6/uL (4.70-6.10); RED CELL DISTRIBUTION WIDTH 12.8 % (12.0-15.0); WHITE BLOOD COUNT 9.1 x10^3/uL (4.8-10.8)
[2023-09-19 15:11] LABS: ALBUMIN 3.9 g/dL (3.2-5.5); ALBUMIN/GLOBULIN RATIO 1.6 (1.0-2.2); BILIRUBIN,TOTAL 0.8 mg/dL (0.2-1.0); CALCIUM 9.4 mg/dL (8.5-10.3); CREATININE 1.9 mg/dL (0.6-1.3); POTASSIUM 4.1 mmol/L (3.5-4.5); TOTAL PROTEIN 6.3 g/dL (6.4-8.9)
--- NOTE | 2023-09-19 16:01 | ED Physician Documentation ---
PD HPI ABD PAIN - Stated complaint Stated Complaint: GI BLEED,OREILLY,NAUSEA - Chief complaint Chief Complaint: Abd Pain - History obtained from History obtained from: Patient, Family - Additional information Additional information: This is an 82-year-old gentleman with history of coronary disease, stented in 2010, remote cholecystectomy, chronic vertigo, and was here last year at which time imaging showed potentially lung cancer. He has not had any follow-up on that despite it being almost a year and tells me he basically has no intention of having it followed up upon. He has a history of GI bleeding after hemorrhoidectomy maybe 10 years ago. Over the last 5 days he has had bloody stools like diarrhea mixed with sometimes dark and sometimes nurseryperson colored blood. He has abdominal discomfort but no pain per se. He does have a sense of impending doom related to this. He denies chest pain, fevers, dizziness other than his usual vertigo. No shortness of breath. No vomiting. Supportive son is at the bedside. PD PAST MEDICAL HISTORY - Past Medical History Past Medical History: Yes Cardiovascular: Hypertension, High cholesterol, Coronary artery disease, [place] Respiratory: COPD Neuro: Migraines Endocrine/Autoimmune: Type 2 diabetes GI: GERD : None HEENT: None Psych: None Musculoskeletal: None - Past Surgical History Past Surgical History: Yes General: Cholecystectomy, Colonoscopy, EGD - Present Medications Home Medications: Ambulatory Orders Medication Instructions Recorded Confirmed Ascorbic Acid [Vitamin C] 500 mg PO DAILY 04/18/19 09/19/23 Cholecalciferol (Vitamin D3) 1,000 units PO DAILY 04/18/19 09/19/23 [Vitamin D3] Ginkgo Biloba [place] Extract [Ginkgo 240 mg PO BID 04/18/19 09/19/23 Biloba] Losartan Potassium 100 mg PO DAILY 04/18/19 09/19/23 Metoprolol Succinate 50 mg PO BID 04/18/19 09/19/23 Multivitamin [Theragran] 1 tab PO DAILY 04/18/19 09/19/23 Saw [place] 1 cap PO DAILY 04/18/19 09/19/23 Ferrous Sulfate 325 mg PO DAILY #30 tablet 04/19/19 09/19/23 Aspirin [[place] Aspirin] 81 mg PO DAILY 09/19/23 09/19/23 - Allergies Allergies/Adverse Reactions: Allergies Allergy/AdvReac Type Severity Reaction Status Date / Time eptifibatide Allergy Unknown Verified 09/19/23 15:55 [From Integrilin] oxycodone Allergy Unknown Verified 09/19/23 15:55 Sulfa (Sulfonamide Allergy Unknown Verified 09/19/23 15:55 Antibiotics) - Social History Does the pt smoke?: No Smoking Status: Never smoker Does the pt drink ETOH?: Yes Does the pt have substance abuse?: No - Immunizations Immunizations are current?: Yes - POLST Patient has POLST: No POLST Status: Full Code PD ED PE NORMAL - Vitals Vital signs reviewed: Yes - General General: Alert and oriented X 3, No acute distress - Cardiac Cardiac: RRR, No murmur - Respiratory Respiratory: No respiratory distress, Clear bilaterally - Abdomen Abdomen: Normal bowel sounds, Soft, Non tender - Rectal Rectal: Other (There is bright red blood in the rectal vault. ) - Neuro Neuro: Alert and oriented X 3 Results - Vitals Vitals: Vital Signs - 24 hr 09/19/23 09/19/23 09/19/23 14:28 16:30 18:24 Temperature 36.8 C Heart Rate 95 86 91 Respiratory 16 18 21 Rate Blood Pressure 164/69 H 134/74 H 115/72 O2 Saturation 98 97 100 09/19/23 09/19/23 09/19/23 20:00 21:00 21:30 Temperature Heart Rate 81 96 88 Respiratory 19 13 20 Rate Blood Pressure 142/60 H 141/67 H O2 Saturation 99 98 100 09/19/23 09/19/23 22:00 22:30 Temperature Heart Rate 86 82 Respiratory 19 14 Rate Blood Pressure 122/61 123/55 L O2 Saturation 100 99 Oxygen O2 Source Room air - Labs Labs: Laboratory Tests 09/19/23 09/19/23 09/19/23 14:47 14:47 14:47 WBC 9.1 RBC 3.47 L Hgb 10.4 L Hct 30.3 L MCV 87.3 MCH 30.0 MCHC 34.3 RDW 12.8 Plt Count 227 MPV 10.8 Neut # (Auto) 7.0 H Lymph # (Auto) 1.4 L [place] # (Auto) 0.6 Eos # (Auto) 0.0 Baso # (Auto) 0.1 Absolute Nucleated RBC 0.00 Nucleated RBC % 0.0 Sodium 133 L Potassium 4.1 Chloride 97 L Carbon Dioxide 27 Anion Gap 9.0 BUN 42 H Creatinine 1.9 H Estimated GFR (MDRD) 34 L Glucose 410 H Calcium 9.4 Total Bilirubin 0.8 AST 14 ALT 11 Alkaline Phosphatase 61 Total Protein 6.3 L Albumin 3.9 Globulin 2.4 Albumin/Globulin Ratio 1.6 Lipase 25 Urine Color Urine Clarity Urine pH Ur Specific [place] Urine Protein Urine Glucose (UA) Urine Ketones Urine Occult Blood Urine Nitrite Urine Bilirubin Urine Urobilinogen Ur Leukocyte Esterase Ur Microscopic Review Urine Culture Comments Blood Type O POSITIVE Antibody Screen NEGATIVE Crossmatch IS Only See Detail 09/19/23 09/19/23 09/19/23 18:04 18:28 21:35 WBC RBC Hgb 9.2 L 9.0 L Hct 27.8 L 27.4 L MCV MCH MCHC RDW Plt Count MPV Neut # (Auto) Lymph # (Auto) [place] # (Auto) Eos # (Auto) Baso # (Auto) Absolute Nucleated RBC Nucleated RBC % Sodium Potassium Chloride Carbon Dioxide Anion Gap BUN Creatinine Estimated GFR (MDRD) Glucose Calcium Total Bilirubin AST ALT Alkaline Phosphatase Total Protein Albumin Globulin Albumin/Globulin Ratio Lipase Urine Color YELLOW Urine Clarity CLEAR Urine pH 7.0 Ur Specific [place] 1.010 Urine Protein NEGATIVE Urine Glucose (UA) >=1000 H Urine Ketones TRACE Urine Occult Blood NEGATIVE Urine Nitrite NEGATIVE Urine Bilirubin NEGATIVE Urine Urobilinogen 0.2 (NORMAL) Ur Leukocyte Esterase NEGATIVE Ur Microscopic Review NOT INDICATED Urine Culture Comments NOT INDICATED Blood Type Antibody Screen Crossmatch IS Only PD Medical Decision Making - ED course ED course: 82-year-old gentleman with lower GI bleed. Hemodynamically stable. Initial hemoglobin 10.4. Previously was normal. After few hours it was 9.2 and he was having several episodes of active bloody bowel movements while in the department. Case discussed by phone with our on-call surgeon, Dr. Soler who recommends transfer to a facility capable of IR. Patient and son discussed and he would like to go ahead with IR if it were necessary. [facility] was called per patient preference at 7:45 PM. His first hemoglobin was 10.4, second was 9.2, second was 9. CT angiography of the belly consistent with a sigmoid probably diverticular bleed. At first the patient did not want repeat imaging of his chest but subsequently acquiesced, and showed similar tumor to last year and he was again encouraged to follow-up for this. Care to Dr. Perez at 11 PM shift change pending hopeful placement for GI bleed somewhere with interventional radiology. Departure - Departure Disposition: 02 Transfer Acute Care Hosp Clinical Impression: Lower GI bleed, Lung mass Condition: Stable Forms: PCP List
[2023-09-19] MEDS ORDERED: iohexoL-300 100 ML VIAL ONE ×2 (16:05→17:32)
[2023-09-19] MEDS: SODIUM CHLORIDE 0.9% 1,000 ML IV STA (16:54)
[2023-09-19] MEDS: iohexoL-300 100 ML VIAL IVP ONE (18:15)
[2023-09-19 18:23] LABS: HCT - HEMATOCRIT 27.8 % (42.0-52.0); HGB - HEMOGLOBIN 9.2 g/dL (14.0-18.0)
[2023-09-19 18:43] LABS: BILIRUBIN,URINE NEGATIVE (NEGATIVE); GLUCOSE, URINE (UA) >=1000 mg/dL (NEGATIVE); KETONES,URINE (UA) TRACE mg/dL (NEGATIVE); LEUKOCYTE ESTERASE, URINE NEGATIVE (NEGATIVE); NITRITE,URINE NEGATIVE (NEGATIVE); OCCULT BLOOD,URINE NEGATIVE (NEGATIVE); PROTEIN,URINE NEGATIVE (NEGATIVE); UROBILINOGEN,URINE 0.2 (NORMAL) E.U./dL (NORMAL)
[2023-09-19 18:48] LABS: CLARITY,URINE CLEAR (CLEAR)
--- NOTE | 2023-09-19 18:55 | CT Report ---
PROCEDURE: Chest W INDICATIONS: chest mass CONTRAST: Omnipaque 300 100ml TECHNIQUE: After the administration of intravenous contrast, a CT scan of the chest was performed. Images were recorded and evaluated at appropriate window settings. Reformats: axial MIP of the chest, coronal and sagittal. For radiation dose reduction, the following was used: automated exposure control, adjustme nt of mA and/or kV according to patient size. COMPARISON: CT chest 10/08/2022 FINDINGS: Image quality: Diagnostic. Chest wall and lower neck: No thyroid nodule which requires sonographic follow up. No axillary or sup raclavicular adenopathy by size. Lungs and pleura: No consolidation. No pleural effusions. No pneumothorax. Similar appearance of rig ht middle lobe spiculated cavitary mass measuring approximately 4.2 x 1.6 cm, previously approximatel y 3.8 x 2.0 cm. Mediastinum: Heart size is normal. Severe coronary calcifications. No pericardial effusion. No large vessel abnormality. No mediastinal adenopathy by size criteria. Bones: No aggressive osseous abnormality. Degenerative changes of the spine in a pattern consistent w ith diffuse idiopathic skeletal hyperostosis. Upper Abdomen: Please refer to same day CT abdomen pelvis. IMPRESSION: 1.Similar appearance of spiculated cavitary mass within the right middle lobe, concerning for neoplas m. If not previously obtained, recommend PET/CT or CT guided biopsy for further evaluation. 2.No acute findings within the chest. 3.No mediastinal or hilar lymphadenopathy is seen. Reviewed by: Hernan Wayne MD on 09/19/2023 6:54 PM PDT Approved by: Hernan Wayne MD on 09/19/2023 6:54 PM PDT Station ID: [id number]
--- NOTE | 2023-09-19 19:21 | CT Report ---
PROCEDURE: Angio Abdomen/Pelvis INDICATIONS: lower gi bleed CONTRAST: Omnipaque 300 100ml TECHNIQUE: After the administration of intravenous contrast, 2.5 mm thick sections acquired from the diaphragm t o the symphysis. 10 mm maximum-intensity projection (MIP) reformats were then acquired. For radiati on dose reduction, the following was used: automated exposure control, adjustment of mA and/or kV ac cording to patient size. COMPARISON: CT abdomen pelvis 10/08/2022 FINDINGS: Image quality: Excellent. Aorta: Atherosclerotic vascular calcifications Mesenteric arteries: Celiac trunk, superior and inferior mesenteric arteries appear patent. Right pelvic arteries: Patent with atherosclerotic vascular calcifications. Left pelvic arteries: Patent with atherosclerotic vascular calcifications. Extravascular soft tissues: Please refer to same day CT of the chest. Heart size is normal. Liver a nd spleen are normal in size and enhancement. Gallbladder is surgically absent. Biliary system is n on dilated. Pancreas enhances normally. No adrenal nodules. Kidneys are normal in size and enhance ment, without hydronephrosis. Non opacified bowel loops are normal in wall thickness and caliber. Hy poattenuation is seen within the sigmoid colon on arterial phase which is not seen on noncontrast and disperses on venous phase, concerning for bleeding. Diverticulosis without evidence of acute diverti culitis. Moderate burden of stool throughout the colon. Normal appendix. No free fluid or air. No re troperitoneal or mesenteric adenopathy. Significant prostatomegaly. No ventral hernias. No suspicio us bony lesions. No vertebral body compression fractures. Degenerative changes of the spine. IMPRESSION: 1.Findings concerning for sigmoid colon GI bleed. 2.Marked prostatomegaly. 3.Diverticulosis without evidence of acute diverticulitis. Reviewed by: Hernan Wayne MD on 09/19/2023 7:20 PM PDT Approved by: Hernan Wayne MD on 09/19/2023 7:20 PM PDT Station ID: [id number]
[2023-09-19] MEDS: INSULIN REGULAR HUMAN 300 UNIT/3 ML VIAL IVP STA (21:41)
[2023-09-19 21:48] LABS: HCT - HEMATOCRIT 27.4 % (42.0-52.0)
[2023-09-19] MEDS: NS W/20 MEQ KCL 1,000 ML IV STA (21:52)
[2023-09-19] MEDS ORDERED: ACETAMINOPHEN 500 MG TABLET PO PRN (21:55)
[2023-09-19] MEDS ORDERED: ONDANSETRON 4 MG/2 ML VIAL IVP PRN (21:55)
[2023-09-20 06:00] LABS: BASOPHILS # (AUTO) 0.1 10^3/uL (0.0-0.1); BASOPHILS % (AUTO) 0.5 %; EOSINOPHILS % (AUTO) 0.4 %; HCT - HEMATOCRIT 24.4 % (42.0-52.0); HGB - HEMOGLOBIN 7.8 g/dL (14.0-18.0); LYMPHOCYTES % (AUTO) 21.3 %; MEAN CORPUSCULAR HEMOGLOBIN 29.2 pg (27.0-31.0); MEAN CORPUSCULAR VOLUME 91.4 fL (80.0-94.0); MEAN PLATELET VOLUME 10.6 fL (7.4-11.4); MONOCYTES # (AUTO) 0.7 10^3/uL (0.0-1.0); MONOCYTES % (AUTO) 7.7 %; NEUTROPHILS # (AUTO) 6.6 10^3/uL (1.5-6.6); NEUTROPHILS % (AUTO) 69.6 %; PLT - PLATELET COUNT 216 10^3/uL (130-450); RED BLOOD COUNT 2.67 10^6/uL (4.70-6.10); RED CELL DISTRIBUTION WIDTH 13.2 % (12.0-15.0); WHITE BLOOD COUNT 9.4 x10^3/uL (4.8-10.8)
--- NOTE | 2023-09-20 06:04 | ED Physician Documentation ---
ED Addendum - Addendum Addendum: 09/20/23 06:03 Patient endorsed to me by Dr. Cornell awaiting placement for IR for GIB. no beds available overnight. patient did have bloody BMs overnight. This morning patient expressed some abdominal pain and was given 4mg IV morphine. 09/20/23 06:45 d/w Dr. Guzman this morning - patient dropped another unit of blood overnight but does not seem to have rapid ongoing GIB. possible plan to admit to hospitalist in the AM given he is no longer likely candidate for IR. Dr. Guzman suspects he may benefit from continued monitoring, PRBC as needed, and possible scope in a couple days. Unable to contact hospitalist due to change of shift. Plan to endorse to daytime ED MD at 7am shift change.
[2023-09-20 06:13] LABS: CALCIUM 9.1 mg/dL (8.5-10.3); CREATININE 1.6 mg/dL (0.6-1.3); POTASSIUM 4.1 mmol/L (3.5-4.5)
[2023-09-20] MEDS: MORPHINE 2 MG/ML CARPUJECT IVP STA (06:52)
[2023-09-20] MEDS: PANTOPRAZOLE 40 MG TABLET PO SCH (06:52)
--- NOTE | 2023-09-20 07:32 | ED Physician Documentation ---
ED Addendum - Addendum Addendum: 09/20/23 07:30 On change of shift, Dr. Perez stated she had just updated with Dr. Rhodes who was in the department. Apparently Dr. Rhodes said given the relatively slow decrease in blood count and stable vitals, that the patient could likely be admitted here to the hospital service and he can consult for scoping. He would be available otherwise. I talked with Dr. Null who is on for the hospitalist and she agrees to admit the patient here. We likely can transfuse another unit of blood given he did drop another gram overnight. However still not very brisk rate of bleeding. Vitals appear good overnight. I placed a hospitalist and general surgery consults. Disposition: The patient is admitted to [facility] in stable condition. Diagnoses: 1. Lower GI bleed with hemorrhagic anemia
[2023-09-20] MEDS ORDERED: SODIUM CHLORIDE FLUSH 0.9% 10 ML SYRINGE IVP PRN (08:43)
[2023-09-20] MEDS ORDERED: ACETAMINOPHEN 325 MG TABLET PO PRN (08:43)
[2023-09-20] MEDS ORDERED: ONDANSETRON ODT 4 MG TABLET TL PRN (08:43)
[2023-09-20] MEDS ORDERED: PROCHLORPERAZINE 10 MG/2 ML VIAL IVP PRN (08:43)
[2023-09-20] MEDS ORDERED: oxyCODONE 5 MG TABLET PO PRN (08:43)
[2023-09-20] MEDS: SODIUM CHLORIDE 0.9% 1,000 ML IV SCH (08:59)
[2023-09-20] MEDS: SODIUM CHLORIDE FLUSH 0.9% 10 ML SYRINGE IVP SCH (08:59)
[2023-09-20] MEDS ORDERED: SODIUM CHLORIDE 0.9% 1,000 ML IV SCH (09:00)
--- NOTE | 2023-09-20 10:44 | HISTORY & PHYSICAL EXAMINATION ---
Chief Complaint - Chief Complaint Chief Complaint: Lower GI bleed with hemorrhagic anemia <Suha Plummer - Last Filed: 09/20/23 15:33> History of Present Illness - Admitted From Admitted From:: Home - History Obtained From Records Reviewed: [facility] History obtained from: Patient Exam Limitations: None <Suha Plummer - Last Filed: 09/20/23 15:33> - History of Present Illness HPI Comment/Other: Mr. Spangler is an 82 year old male with a history of coronary disease (stented in 2010), remote cholecystectomy, chronic vertigo, lung mass seen on imaging last year which he has not followed up on, diverticulosis and a history of GI bleeding after hemorrhoidectomy 10 years ago. He first started noticing blood mixed with liquid stool starting on Wednesday 09/13. He states that blood in stool became less in volume until saturday (09/16) when his bloody stools resolved and he had 3 semi-formed non bloody stools. On he reports a reoccurrence of runny stool with bright red blood after eating a large meal. Since then he has had multiple episodes of runny stool with blood daily. He presented to the ED yesterday (09/18) for 5 days of bloody stools, abdominal pain and distention, and a sense of impending doom. In the ED he was hemodynamically stable but was having several episodes of active bloody bowel movements. His initial Hgb was 10.4 and after a few hours it was 9.2 and then [address] angiography of the belly consistent with a sigmoid probably diverticular bleed. At first the patient did not want repeat imaging of his chest but subsequently acquiesced, and showed similar tumor to last year and he was again encouraged to follow-up for this. The ER doctors discussed his case with on-call surgeon, Dr. Guzman who initially recommended transfer to a facility capable of IR. Patient was given PRBCs and IV morphine overnight. While waiting to be transferred to a facility Dr. Guzman decided Mr. Spangler was no longer a candidate for IR given the relatively slow decrease in blood count and stable vitals and recommended that he be admitted for continued monitoring, PRBCs as needed, and possible scope in a couple days. Today Mr. Spangler admits to having two bowel movements with soft stool and some blood. He reports that he has the sensation of abdominal fullness but denies any pain. (Suha Plummer) History - Past Medical History Cardiovascular: reports: Hypertension, High cholesterol, Coronary artery disease, [place] Respiratory: reports: COPD Neuro: reports: Migraines Endocrine/Autoimmune: reports: Type 2 diabetes GI: reports: GERD, GI bleed (Hx of GI bleed following hemorrhoidectomy 10 years ago), Other (Patient reports having diverticulosis diagnosed after scope many years ago) : reports: Benign prostate hypertrophy HEENT: reports: Other (Cataracts) Psych: reports: None Musculoskeletal: reports: None Derm: reports: None MRSA Hx?: No - Past Surgical History General: reports: Cholecystectomy, Colonoscopy, EGD Cardiovascular: reports: Coronary stent - Family & Social History Family History: Mother: , Cancer, Father: , COPD/Emphysema Family History Comment/Other: pt report his father from COPD, his mother from pancreatic cancer at age 62, his sister from breast cancer at age 47. He has a brother who is alive and healthy. he never , no child. Living arrangement: At home Living Situation: With caregiver(s) (Lives with his God Son Nick who helps with some yard work/ grocery shopping) Social History Notes: pt report he is living at [facility], he never . But his god son lives with him. He also has neighbours and friends close by. he denies cigarett smoker, alcohol and drug abuse. 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 - Substance History Use: Uses substance without health or social issues: Other (Patient previsouly smoked but quit in 1977) Abuse: Recurrent use of substance despite neg consequences: NONE - POLST Patient has POLST: No POLST Status: Full Code <Suha Plummer - Last Filed: 09/20/23 15:33> Meds/Allgy <Suha Plummer - Last Filed: 09/20/23 15:33> <Naomi Lira - Last Filed: 09/21/23 13:04> - Home Medications Home Medications: Ambulatory Orders Medication Instructions Recorded Confirmed Ascorbic Acid [Vitamin C] 500 mg PO DAILY 04/18/19 09/19/23 Cholecalciferol (Vitamin D3) 1,000 units PO DAILY 04/18/19 09/19/23 [Vitamin D3] Ginkgo Biloba [place] Extract [Ginkgo 240 mg PO BID 04/18/19 09/19/23 Biloba] Losartan Potassium 100 mg PO DAILY 04/18/19 09/20/23 Metoprolol Succinate 50 mg PO BID 04/18/19 09/20/23 Multivitamin [Theragran] 1 tab PO DAILY 04/18/19 09/19/23 [place] 1 cap PO DAILY 04/18/19 09/19/23 Ferrous Sulfate 325 mg PO DAILY #30 tablet 04/19/19 09/19/23 Aspirin [[place] Aspirin] 81 mg PO DAILY 09/19/23 09/19/23 Chlorthalidone 25 mg PO DAILY 09/20/23 09/20/23 Omeprazole 40 mg PO BIDWM 09/20/23 09/20/23 SITagliptin [Januvia] 100 mg PO DAILY 09/20/23 09/20/23 - Allergies Allergies/Adverse Reactions: Allergies Allergy/AdvReac Type Severity Reaction Status Date / Time eptifibatide Allergy Unknown Verified 09/19/23 15:55 [From Integrilin] oxycodone Allergy Unknown Verified 09/19/23 15:55 Sulfa (Sulfonamide Allergy Unknown Verified 09/19/23 15:55 Antibiotics) atorvastatin AdvReac Cramps Verified 09/20/23 12:36 Review of Systems - Constitutional Constitutional: denies: Fever, Chills, Diaphoresis, Night sweats, Weight loss - Eyes Eyes: denies: Pain, Blurred vision - Ears, Nose & Throat Ears, Nose & Throat: reports: Hearing loss (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 Has hearing aids but doesn't like to use them.), Hearing aids. denies: Nasal discharge, Nasal congestion - Cardiovascular Cariovascular: denies: Irregular heart rate, Palpitations, Chest pain, Lightheadedness - Respiratory Respiratory: denies: Cough, Wheezing, Hemoptysis, Orthopnea, SOB at rest - Gastrointestinal Gastrointestinal: reports: Abdominal distention, Diarrhea, Rectal bleeding, Bloody stools, Reflux/heartburn. denies: Abdominal pain, Nausea, Vomiting - Genitourinary Genitourinary: denies: Dysuria - Musculoskeletal Musculoskeletal: denies: Muscle pain - Integumentary Integumentary: denies: Rash - Neurological Neurological: denies: General weakness, Headache, Dizziness, Numbness - Psychiatric Psychiatric: denies: Depression, Anxiety - Endocrine Endocrine: denies: Polyuria - Hematologic/Lymphatic Hematologic/Lymphatic: denies: Bleeding tendencies, Recurrent infections <Suha Plummer - Last Filed: 09/20/23 15:33> <Suha Plummer - Last Filed: 09/20/23 15:33> Prior Level of Functionality: Patient is ambulatory, independent, able to grocery shop, cook for himself, take care of himself. He occasionally has help with yard work and grocery shopping from his god son who lives with him, but is able to fully care for himself when his god son is out of town for work. (Suha Plummer) Exam - Physical Exam General Appearance: positive: No acute distress, Alert Eyes Bilateral: positive: PERRL ENT: positive: No signs of dehydration Neck: positive: Nml inspection Respiratory: positive: Chest non-tender, No respiratory distress, Breath sounds nml. negative: Wheezes, Rales, Rhonchi Cardiovascular: positive: Regular rate & rhythm, No murmur, No gallop. negative: Friction rub Abdomen: positive: Nml bowel sounds, Tenderness (mild tenderness to palpation in left lower quadrant), Other (moderate abdominal distention) Skin: positive: Color nml, No rash, Warm, Dry. negative: Diaphoresis Extremities: positive: Non-tender, Nml appearance, No pedal edema Neurologic/Psychiatric: positive: Oriented x3, CN's nml (2-12), Mood/affect nml <Suha Plummer - Last Filed: 09/20/23 15:33> - Vital Signs Vital Signs: Vital Signs x48h Temp Pulse Resp BP Pulse Ox 09/21/23 11:34 37.1 C 91 18 127/59 L 98 09/21/23 08:03 36.9 C 86 18 122/66 100 09/21/23 06:56 36.9 C 88 16 133/74 H Conclusion/Plan - Problem List (1) GI bleed Conclusion/Plan: Mr. Spangler is an 82 year old male with a history of diverticulosis who presented to the ED yesterday (09/18) for 5 days of bloody stools, abdominal pain and distention, and a sense of impending doom. In the ED he was hemodynamically stable but anemic and was having several episodes of active bloody bowel movements. His initial Hgb was 10.4 and has progressed to 9.2, 9.0, and this morning was 7.8. CT angiography of the belly consistent with a sigmoid (likely diverticular) bleed. GI bleed is likely exacerbated by his daily use of Aspirin and Ginkgo biloba. Dr. Guzman initially recommended transfer to a facility capable of IR embolization. Patient was given PRBCs and IV morphine for 4/10 LLQ pain overnight. This morning Dr. Guzman recommended that he be admitted for continued monitoring, PRBCs as needed, and possible scope in a couple days given the relatively slow decrease in blood count and stable vitals instead of transfer to another facility with IR. Since admission Mr. Spangler has received an additional unit of PRBCs and had two bowel movements with soft stool and some blood. He reports that he continues to have the sensation of abdominal fullness but denies any pain. There was moderate abdominal distention noted on exam today. Patient expresses that if his GI bleeding progresses he would decline to have a bowel resection or colostomy bag. We will plan to continue monitoring labs, bowel movements, and transfusing IV fluids, pain meds and PRBCs as needed. Mr. Spangler will remain on a clear liquid diet today and we will assess for worsening of his GI bleed. Will plan to consult Dr. Guzman if patient's condition worsens. (2) Anemia Conclusion/Plan: Mr. Spangler is an 82 year old male with an acute lower GI bleed x6 days causing acute blood loss anemia. He has remained hemodynamically stable but continues to have episodes of bloody bowel movements. He does feel that his hematochezia has lessened since yesterday. His initial Hgb was 10.4 and has progressed to 9.2, 9.0, and this morning was 7.8. Acute GI bleed is likely the cause of his anemia. He has been given 2 units of PRBCs since he presented to the ED yesterday. We will plant to continue serial H&H (Q 6h) and transfuse to keep Hgb > 8 gm/dL as needed. Qualifiers: Qualified Code(s): D64.9 - Anemia, unspecified (3) Lung mass Conclusion/Plan: Mr. Spangler was previously seen in the ED last year on 10/08/22 at which time imaging showed a mass that was potentially neoplastic. Patient was encouraged to follow up with pulmonology for biopsy and further evaluation which he never did. In the ER yesterday, he originally told the provider that he has no intention of having it followed up upon, but later requested repeat imaging of his chest. Chest CT showed a similar appearance of spiculated cavitary mass within the right middle lobe, concerning for neoplasm. The mass measured 4.2x1.6cm compared to 3.8x2.0 seen on imaging last year. When discussed with patient he first shared that he would not opt to receive treatment if it was cancer because he witnessed a friend go through treatment for lung cancer and his friends quality of life got very bad on treatment and he after a couple of months. When discussed further Mr. Spangler states that if it were cancer he would want to have a discussion about the outcome, his life expectancy and what his quality of life might look like on treatment. We informed Mr. Spangler that we would not be able to answer these questions without a diagnostic biopsy to confirm whether the lesion is neoplastic or not. Currently he denies any dyspnea, chest pain, cough, hemoptysis. We encouraged Mr. Spangler to follow up with a centrifugal spinner after his discharge for biopsy and diagnosis. Patient will continue to think about whether he wants to do this. (4) DM2 (diabetes mellitus, type 2) Conclusion/Plan: Patient has type 2 diabetes without complications diagnosed in 1997. Diabetes is managed by his PCP Dr.Allison Lynn. reports that his diabetes was previously controlled with lifestyle changes and metformin for 7-8 years but for the past 2 years he has been taking daily Sitafliptin (januvia) but does not remember what dose. In the ED his glucose was 410 and he was given 8 units of insulin. We will plan to administer insulin as needed based on frequent blood glucose checks. A1c would not be accurate at this time due to GI blood loss and anemia. (5) HTN (hypertension) Conclusion/Plan: Mr. Spangler has a history of hypertension and is taking metoprolol, chlorthalidone and losartan managed by his PCP. This morning his HR and BP became elevated so we re-started his metoprolol. We will continue to monitor his vitals and add additional antihypertensives as needed. - Lab Results Lab results reviewed: Yes Fish Bones: 09/20/23 05:54 09/20/23 05:54 - Diagnostic Imaging Results Diagnostic Imaging Results: positive: See rad report <Suha Plummer - Last Filed: 09/20/23 15:33> - Lab Results Fish Bones: 09/21/23 07:43 09/20/23 05:54 <Naomi Lira - Last Filed: 09/21/23 13:04>
[2023-09-20] MEDS: METOPROLOL SUCCINATE 50 MG TABLET PO SCH (11:08)
[2023-09-20] MEDS: TAMSULOSIN 0.4 MG CAPSULE PO SCH (11:08)
--- NOTE | 2023-09-20 11:22 | CONSULTATION NOTE ---
Surgery Consult - Admit Date Hospital Admission Date: 09/20/23 - Consult Date Consult Date: 09/20/23 Requesting Provider: Pankaj - Chief Complaint Chief Complaint: GI bleed - Home Meds/Allergies Home Medications: Patient History Medication Instructions Recorded Confirmed Ascorbic Acid [Vitamin C] 500 mg PO DAILY 04/18/19 09/19/23 Cholecalciferol (Vitamin D3) 1,000 units PO DAILY 04/18/19 09/19/23 [Vitamin D3] Ginkgo Biloba [place] Extract [Ginkgo 240 mg PO BID 04/18/19 09/19/23 Biloba] Losartan Potassium 100 mg PO DAILY 04/18/19 09/20/23 Metoprolol Succinate 50 mg PO BID 04/18/19 09/20/23 Multivitamin [Theragran] 1 tab PO DAILY 04/18/19 09/19/23 [place] 1 cap PO DAILY 04/18/19 09/19/23 Aspirin [[place] Aspirin] 81 mg PO DAILY 09/19/23 09/19/23 Chlorthalidone 25 mg PO DAILY 09/20/23 Omeprazole 40 mg PO BIDWM 09/20/23 SITagliptin [Januvia] 100 mg PO DAILY 09/20/23 Allergies/Adverse Reactions: Allergies Allergy/AdvReac Type Severity Reaction Status Date / Time eptifibatide Allergy Unknown Verified 09/19/23 15:55 [From Integrilin] oxycodone Allergy Unknown Verified 09/19/23 15:55 Sulfa (Sulfonamide Allergy Unknown Verified 09/19/23 15:55 Antibiotics) - Vital Signs Vital Signs: Last Vital Signs Temp 98.4 F 09/20/23 09:46 Pulse 109 H 09/20/23 10:46 Resp 18 09/20/23 10:46 BP 138/63 H 09/20/23 10:46 Pulse Ox 98 09/20/23 10:46 O2 Flow Rate Intake & Output: Intake & Output 09/17/23 09/18/23 09/19/23 09/20/23 23:59 23:59 23:59 23:59 Intake Total 1000 1077 Output Total 200 Balance 800 1077 - Lab Results Result Diagrams: 09/20/23 05:54 09/20/23 05:54 - Consultation Note Consultation Note: General Surgery Consultation Note Assessment: 1) Lower GI bleed presumed to be due to sigmoid diverticulosis and aggravated by his daily use of full strength aspirin. He has received 1 unit of packed RBC's, has had a decrease in his hematochezia, and has remained hemodynamically stable. 2) IN/stent (2010) 3) HTN 4) DM 5) GERD 6) COPD Recommendation: 1) Maintain IV access for transfusions/fluids, meds 2) Ice chips/clears today 3) Serial H&H (Q 6h) and transfuse to keep Hgb > 8 gm/dL 4) Consider transfer to tertiary care center for IR embolization if his bleeding recurs. 5) Emergency laparotomy/colectomy is an option if # 4 not available and the blood loss if life threatening. <><><><><><><><><><> Reason for Consultation Assistance with co-management of this patient with a lower GI bleed Chief Complaint Rectal bleeding JOSE Tran is an 82 year old man who developed the sudden onset of painless rectal bleeding noon last Saturday. The bleeding persisted until Saturday when it appeared to stop. He ate a large dinner on Saturday night and the bleeding recurred the next day. He came to the ED yesterday and was passing BRBPR. He was anemic but hemodynamically stable. CTA identified what appeared to be a slight blush in the sigmoid colon but active bleeding was not confirmed. He was transfused 1 unit of PRBC and plans to transfer him to a tertiary care facility for IR embolization were initiated. He remained hemodynamically stable in the ED awaiting transfer, received a second unit of blood, and as the evening and morning progressed, it appeared as if his active blood loss has ceased. He was admitted to the Medical Hospitalist Service and I was asked to assist in the management of his lower GI bleed. Marc thinks he had a CS exam over ten years ago. He claims to have the diagnosis of diverticulosis. His last endoscopic examination at this facility was in 2019 and it was an EGD for chronic blood loss anemia. No pathology was identified. He was supposed to have a CS exam done after the EGD but this was never performed. Past Medical History COPD, HTN, DM, GERD, [place], Chronic blood loss anemia, History colon polyps, History of PUD Past Surgical History Hemorrhoidectomy, Cholecystectomy, T&A Family History N/A Social History Stopped cig 1977; No ETOH use Current Medications See "Medication" section Allergies See "Allergy" section ROS Pertinent positives Bright red blood from rectum; mild fatigue. No dizziness , SOB, or Chest pain All other reviewed systems negative Physical Examination Vital Signs: See "Vital Signs" section GENERAL APPEARANCE: Normal development, normal body habitus, normal grooming PSYCHIATRIC: AAO; Comfortable; Cooperative EYES: Pupils equal, round and reactive to light, sclera anicteric EARS, NOSE, MOUTH, THROAT: Hearing normal, Oral mucous membranes moist and without lesions; NECK: No crepitus, lymphadenopathy, or thyromegaly LUNGS: Clear to auscultation without wheezing; No use of accessory muscles to breathe CARDIOVASCULAR: Heart-NSR without murmurs; Palpable carotid arteries - no bruits; Femoral, Pedal pulses palpable; Peripheral edema absent ABD: Soft, not distended, not tender, active BS, no palpable masses, no ventral hernia LYMPHATIC: Neck, Axillae, Groin no palpable adenopathy EXTREMITIES: No clubbing, cyanosis, infections SKIN: Anicteric; No rashes, lesions, Ulcerations Labs See "Labs" section Antibiotics: None Imaging CTA Abd - Colonic diverticulosis, possible bleed into sigmoid colon All images were personally reviewed by me for this encounter. John Guzman MD, FACS General Surgery Service [phone]
[2023-09-20] MEDS: INSULIN LISPRO 300 UNIT/3 ML PEN SUBQ SCH ×2 (12:17→18:14)
--- NOTE | 2023-09-20 12:57 | PHARMACY PROGRESS NOTE ---
- Best Possible Medication History Admit Date and Time: 09/20/23 0843 Processed by: Pharmacy Medications reviewed in ED?: Yes Medication History completed: Yes Patient Interview: Completed Secondary Source(s): Insurance records As the person ultimately responsible for medication therapy, providers are able to order a medication from an existing home medication list in [facility] via the "Reconcile Routine" prior to Confirmation of that medication by instructional support specialist. Such practice is discouraged except when the physician, in their clinical judgment, deems that a medical need exists for a medication without regard to previous use.
[2023-09-20 15:22] LABS: HCT - HEMATOCRIT 25.1 % (42.0-52.0); HGB - HEMOGLOBIN 8.2 g/dL (14.0-18.0); MEAN CORPUSCULAR HEMOGLOBIN 29.5 pg (27.0-31.0); MEAN CORPUSCULAR HGB CONC 32.7 g/dL (32.0-36.0); MEAN CORPUSCULAR VOLUME 90.3 fL (80.0-94.0); MEAN PLATELET VOLUME 10.5 fL (7.4-11.4); RED BLOOD COUNT 2.78 10^6/uL (4.70-6.10); RED CELL DISTRIBUTION WIDTH 13.4 % (12.0-15.0); WHITE BLOOD COUNT 9.5 x10^3/uL (4.8-10.8)
--- NOTE | 2023-09-20 18:30 | PROVIDER PROGRESS NOTE ---
Progress Note General Surgery PM Progress Note Marc is comfortable and sitting in a chair. He has had no further hematochezia. His Hgb at 1500 was 8.2 gm/dL. He is tolerating a clear liquid diet. If he remains hemodynamically stable, we can consider advancing his diet to full liquids tomorrow. He should remain off aspirin for at least 7 days. He claims to be taking 4 low dose ASA pills a day which should be addressed before discharge from the hospital. This afternoon I updated his son on the diagnosis of lower GI blood loss due to suspected sigmoid diverticulosis and that at this point in time there is no indication for IR or surgical intervention. All questions were addressed and answered. John Guzman MD, FACS General Surgery Service
[2023-09-21 00:27] LABS: HGB - HEMOGLOBIN 7.4 g/dL (14.0-18.0); MEAN CORPUSCULAR HEMOGLOBIN 29.1 pg (27.0-31.0); MEAN CORPUSCULAR HGB CONC 30.8 g/dL (32.0-36.0); MEAN CORPUSCULAR VOLUME 94.5 fL (80.0-94.0); MEAN PLATELET VOLUME 10.6 fL (7.4-11.4); RED BLOOD COUNT 2.54 10^6/uL (4.70-6.10); RED CELL DISTRIBUTION WIDTH 13.7 % (12.0-15.0); WHITE BLOOD COUNT 9.2 x10^3/uL (4.8-10.8)
--- NOTE | 2023-09-21 07:22 | PROVIDER PROGRESS NOTE ---
Progress Note General Surgery Progress Note S: Awake, ambulatory. Passing flatus but no stool. Denies chest pain, SOB, syncope, or abdominal pain O: P 88; BP 133/74; AAO; Comfortable; Lungs clear; Heart NSR; Abd soft, not distended, not tender, active BS 0100 H&H 7.4/24% Net fluid intake since admission: +5,000 ml Patient received a unit of PRBC's (second unit transfused this admission) this morning for the 0100 H&H results A: Lower GI Bleed likely diverticular. No clinical evidence of continued bleeding. His current anemia is due to the 4 days of active bleeding that occurred before he was admitted and the effects of hemodilution from his IV fluids. R: Advance to full liquid diet; IV to saline lock; Ambulate; Serial H&H. Consider discharge to home tomorrow if he tolerates the dietary advancement and if his H&H remain stable. Ideally, as an out-patient he would undergo diagnostic colonoscopy but given his reluctance to pursue diagnostic procedures for his right lung mass, he may not comply with the recommendation. Surgery will follow John Guzman MD, FACS General Surgery Service
[2023-09-21 07:48] LABS: BASOPHILS % (AUTO) 0.5 %; EOSINOPHILS # (AUTO) 0.1 10^3/uL (0.0-0.7); EOSINOPHILS % (AUTO) 1.5 %; HCT - HEMATOCRIT 27.4 % (42.0-52.0); HGB - HEMOGLOBIN 9.1 g/dL (14.0-18.0); LYMPHOCYTES # (AUTO) 1.5 10^3/uL (1.5-3.5); LYMPHOCYTES % (AUTO) 21.1 %; MEAN CORPUSCULAR HGB CONC 33.2 g/dL (32.0-36.0); MEAN CORPUSCULAR VOLUME 90.4 fL (80.0-94.0); MEAN PLATELET VOLUME 10.4 fL (7.4-11.4); MONOCYTES # (AUTO) 0.5 10^3/uL (0.0-1.0); MONOCYTES % (AUTO) 7.4 %; NEUTROPHILS % (AUTO) 69.1 %; PLT - PLATELET COUNT 169 10^3/uL (130-450); RED BLOOD COUNT 3.03 10^6/uL (4.70-6.10); RED CELL DISTRIBUTION WIDTH 13.2 % (12.0-15.0); WHITE BLOOD COUNT 7.3 x10^3/uL (4.8-10.8)
--- NOTE | 2023-09-21 08:13 | PROVIDER PROGRESS NOTE ---
Assessment/Plan - Problem List (1) GI bleed Assessment/Plan: Conclusion/Plan: Mr. Spangler is an 82 year old male with a history of diverticulosis who presented to the ED on 09/18 for 5 days of bloody stools, abdominal pain and distention, and a sense of impending doom. In the ED he was hemodynamically stable but anemic and was having several episodes of active bloody bowel movements. His initial Hgb was 10.4 and has progressed to 9.2, 9.0, 7.8 and this morning was 9.1. CT angiography of the belly consistent with a sigmoid (likely diverticular) bleed. GI bleed is likely exacerbated by his daily use of Aspirin (patient reports taking 4x 81mg daily) and Ginkgo biloba. Dr. Guzman initially recommended transfer to a facility capable of IR embolization but while waiting to transfer patient stabilized and Dr. Guzman recommended that he be admitted for continued monitoring, PRBCs as needed, and possible scope in a couple days given the relatively slow decrease in blood count and stable vitals. Since admission Mr. Spangler has received two additional units of PRBCs and today he admits to one small bowel movement with a small amount of blood. He is overall feeling better and reports his fatigue is improving. His abdominal distention that was present yesterday has mostly improved and is only mild today. The abdomen was soft and bowel sounds were normal. Patient expresses that if his GI bleeding progresses he would "rather that receive a hemicolectomy or colostomy". We will plan to continue monitoring labs, bowel movements, and transfusing IV fluids, pain meds and PRBCs as needed. Since patient is still activley bleeding he will remain admitted for another night. Mr. Spangler will progress to a full liquid diet today and we will assess for worsening of his GI bleed. If he is able to tolerate full liquid today and his labs continue to improve, we will consider discharging tomorrow. It would be recommended that he receive a scope in outpatient setting. Will plan to consult Dr. Guzman if patient's condition worsens. (2) Anemia Conclusion/Plan: Mr. Spangler is an 82 year old male with an acute lower GI bleed x7 days causing acute blood loss anemia. He has remained hemodynamically stable and his last episode of hematochezia was this morning but he reports the amount of blood continues to decrease. His initial Hgb was 10.4 and has progressed to 9.2, 9.0, 7.8 and and this morning was 9.1. He has been given 3 units of PRBCs since he presented to the ED yesterday. We will plant to continue serial H&H (Q 6h) and transfuse to keep Hgb > 8 gm/dL as needed. (3) Lung mass Conclusion/Plan: Mr. Spangler was previously seen in the ED last year on 10/08/22 at which time imaging showed a mass that was potentially neoplastic. Patient was encouraged to follow up with pulmonology for biopsy and further evaluation which he never did. In the ER on 09/18, he originally told the provider that he has no intention of having it followed up upon, but later requested repeat imaging of his chest. Chest CT showed a similar appearance of spiculated cavitary mass within the right middle lobe, concerning for neoplasm. The mass measured 4.2x1.6cm compared to 3.8x2.0 seen on imaging last year. When discussed with patient he first shared that he would not opt to receive treatment if it was cancer because he witnessed a friend go through treatment for lung cancer and his friends quality of life got very bad on treatment and he after a couple of months. When discussed further Mr. Spangler states that if it were cancer he would want to have a discussion about the outcome, his life expectancy and what his quality of life might look like on treatment. We informed Mr. Spangler that we would not be able to answer these questions without a diagnostic biopsy to confirm whether the lesion is neoplastic or not. Currently he denies any dyspnea, chest pain, cough, hemoptysis. We encouraged Mr. Spangler to follow up with a group worker after his discharge for biopsy and diagnosis. Patient will continue to think about whether he wants to do this. (4) DM2 (diabetes mellitus, type 2) Conclusion/Plan: Patient has type 2 diabetes without complications diagnosed in 1997. Diabetes is managed by his PCP Dr.Allison Lynn. reports that his diabetes was previously controlled with lifestyle changes and metformin for 7-8 years but for the past 2 years he has been taking daily Sitafliptin (januvia) but does not remember what dose. In the ED his glucose was 410 and he was given 8 units of insulin. Since admission his glucose has been 273, 301, 154, 122, and 279. He has been given insulin 3-11 units SQ as needed yesterday and today he was given 9 units at 11:43am. We will plan to administer Lantus in the morning tomorrow and continue insulin as needed based on frequent blood glucose checks. A1c would not be accurate at this time due to GI blood loss and anemia. (5) HTN (hypertension) Conclusion/Plan: Mr. Spangler has a history of hypertension and is taking metoprolol, chlorthalidone and losartan managed by his PCP. This morning his HR and BP became elevated yesterday so we re-started his metoprolol. His BP and HR has since improved. We will continue to monitor his vitals and add additional antihypertensives as needed. - Current Meds Current Meds: Current Medications Generic Name Dose Route Start Last Admin Trade Name Freq PRN Reason Stop Dose Admin Sodium Chloride 1,000 mls @ 83 mls/hr 09/20/23 09:00 09/21/23 06:56 Normal Saline 0.9% IV 83 mls/hr .Q12H3M [facility] Infusion Insulin Human Lispro 3 - 11 unit 09/20/23 17:00 09/20/23 20:39 Insulin Lispro 300 Unit/3 Ml Pen SUBQ 3 unit 0800,1200,1700,2100 [facility] Administration Protocol Metoprolol Succinate 50 mg 09/20/23 11:00 09/20/23 20:37 Metoprolol Succinate 50 Mg Tablet PO 50 mg BID [facility] Administration Sodium Chloride 10 ml 09/20/23 09:00 09/21/23 00:48 Sodium Chloride Flush 0.9% 10 Ml Syringe IVP 10 ml 0100,0900,1700 [facility] Administration Tamsulosin HCl 0.4 mg 09/20/23 11:00 09/20/23 11:08 Tamsulosin 0.4 Mg Capsule PO 0.4 mg DAILY [facility] Administration - Lab Result Fish Bone Diagrams: 09/21/23 07:43 09/20/23 05:54 - Diagnostic Imaging Results Diagnostic Imaging Results: See rad report - Additional Planning Condition/Complexity: Stable Consult/Specialty: Pulmonary Subjective - Subjective Patient Reports: Fatigue Nursing Reports: No Complaints Objective Vital Signs: Vital Signs - 24 hr 09/20/23 09/20/23 09/20/23 08:30 09:00 09:26 Temperature 36.4 C L 36.5 C 36.6 C Heart Rate 96 96 97 Heart Rate [ Brachial] Respiratory 13 14 12 Rate Blood Pressure 108/58 L 108/51 L 118/50 L Blood Pressure [Right Brachial artery] O2 Saturation 100 99 99 09/20/23 09/20/23 09/20/23 09:46 10:46 15:33 Temperature 36.9 C 37.0 C Heart Rate Heart Rate [ 110 H 109 H 92 Brachial] Respiratory 16 18 18 Rate Blood Pressure Blood Pressure 139/62 H 138/63 H 119/55 L [Right Brachial artery] O2 Saturation 99 98 98 09/20/23 09/21/23 09/21/23 23:26 04:07 04:15 Temperature 36.4 C L 36.5 C 36.8 C Heart Rate Heart Rate [ 80 93 83 Brachial] Respiratory 18 20 16 Rate Blood Pressure Blood Pressure 108/45 L 116/53 L 121/53 L [Right Brachial artery] O2 Saturation 97 94 09/21/23 09/21/23 09/21/23 04:25 06:56 08:03 Temperature 37.2 C 36.9 C 36.9 C Heart Rate Heart Rate [ 81 88 86 Brachial] Respiratory 16 16 18 Rate Blood Pressure Blood Pressure 115/51 L 133/74 H 122/66 [Right Brachial artery] O2 Saturation 100 Oxygen O2 Source Room air I&O (Last 24 Hrs): Intake and Output Totals x24h 09/19/23 09/20/23 09/21/23 23:59 23:59 23:59 Intake Total 1000 3252.567 1036.65 Output Total 200 1 Balance 800 3251.567 1036.65 General: Alert, Oriented x3, Cooperative, No acute distress HEENT: Atraumatic Neck: Supple Neuro: Alert, Non Focal, CN 2-12 Grossly Intact, Oriented Times 3 Cardiovascular: Regular rate, No murmurs Respiratory: No respiratory distress, Breath sounds nml Abdomen: Normal bowel sounds, Soft, No tenderness, No hepatospenomegaly, Other (mild abdominal distention) Extremities: No cyanosis, No edema, Normal pulses - Results Results: Laboratory Results WBC 7.3 x10^3/uL (4.8-10.8) 09/21/23 07:43 RBC 3.03 10^6/uL (4.70-6.10) L 09/21/23 07:43 Hgb 9.1 g/dL (14.0-18.0) L 09/21/23 07:43 Hct 27.4 % (42.0-52.0) L 09/21/23 07:43 MCV 90.4 fL (80.0-94.0) 09/21/23 07:43 MCH 30.0 pg (27.0-31.0) 09/21/23 07:43 MCHC 33.2 g/dL (32.0-36.0) 09/21/23 07:43 RDW 13.2 % (12.0-15.0) 09/21/23 07:43 Plt Count 169 10^3/uL (130-450) 09/21/23 07:43 MPV 10.4 fL (7.4-11.4) 09/21/23 07:43 Neut # (Auto) 5.0 10^3/uL (1.5-6.6) 09/21/23 07:43 Lymph # (Auto) 1.5 10^3/uL (1.5-3.5) 09/21/23 07:43 [place] # (Auto) 0.5 10^3/uL (0.0-1.0) 09/21/23 07:43 Eos # (Auto) 0.1 10^3/uL (0.0-0.7) 09/21/23 07:43 Baso # (Auto) 0.0 10^3/uL (0.0-0.1) 09/21/23 07:43 Absolute Nucleated RBC 0.00 x10^3/uL 09/21/23 07:43 Nucleated RBC % 0.0 /100WBC 09/21/23 07:43 Sodium 136 mmol/L (135-145) 09/20/23 05:54 Potassium 4.1 mmol/L (3.5-4.5) 09/20/23 05:54 Chloride 103 mmol/L (101-111) 09/20/23 05:54 Carbon Dioxide 22 mmol/L (21-32) 09/20/23 05:54 Anion Gap 11.0 (6-13) 09/20/23 05:54 BUN 37 mg/dL (6-20) H 09/20/23 05:54 Creatinine 1.6 mg/dL (0.6-1.3) H 09/20/23 05:54 Estimated GFR (MDRD) 41 (>89) L 09/20/23 05:54 Glucose 208 mg/dL (74-104) H 09/20/23 05:54 POC Whole Bld Glucose 122 mg/dL (70 - 100) H 09/21/23 07:32 Calcium 9.1 mg/dL (8.5-10.3) 09/20/23 05:54 Total Bilirubin 0.8 mg/dL (0.2-1.0) 09/19/23 14:47 AST 14 IU/L (10-42) 09/19/23 14:47 ALT 11 IU/L (10-60) 09/19/23 14:47 Alkaline Phosphatase 61 IU/L (42-121) 09/19/23 14:47 Total Protein 6.3 g/dL (6.4-8.9) L 09/19/23 14:47 Albumin 3.9 g/dL (3.2-5.5) 09/19/23 14:47 Globulin 2.4 g/dL (2.1-4.2) 09/19/23 14:47 Albumin/Globulin Ratio 1.6 (1.0-2.2) 09/19/23 14:47 Lipase 25 U/L (11-82) 09/19/23 14:47 Urine Color YELLOW 09/19/23 18:28 Urine Clarity CLEAR (CLEAR) 09/19/23 18:28 Urine pH 7.0 PH (5.0-7.5) 09/19/23 18:28 Ur Specific [place] 1.010 (1.002-1.030) 09/19/23 18:28 Urine Protein NEGATIVE mg/dL (NEGATIVE) 09/19/23 18:28 Urine Glucose (UA) >=1000 mg/dL (NEGATIVE) H 09/19/23 18:28 Urine Ketones TRACE mg/dL (NEGATIVE) 09/19/23 18:28 Urine Occult Blood NEGATIVE (NEGATIVE) 09/19/23 18:28 Urine Nitrite NEGATIVE (NEGATIVE) 09/19/23 18:28 Urine Bilirubin NEGATIVE (NEGATIVE) 09/19/23 18:28 Urine Urobilinogen 0.2 (NORMAL) E.U./dL (NORMAL) 09/19/23 18:28 Ur Leukocyte Esterase NEGATIVE (NEGATIVE) 09/19/23 18:28 Ur Microscopic Review NOT INDICATED 09/19/23 18:28 Urine Culture Comments NOT INDICATED 09/19/23 18:28 Blood Type O POSITIVE 09/19/23 14:47 Antibody Screen NEGATIVE 09/19/23 14:47 Crossmatch IS Only See Detail 09/19/23 14:47 - Procedures Procedures: Procedures EXCISION OF DUODENUM, ENDO, DIAGN (04/18/19) Current Medications - Current Medications Current Medications: Active Medications Acetaminophen (Acetaminophen 325 Mg Tablet) 650 mg PO Q4HR PRN PRN Reason: Pain 1 to 4, or Fever Sodium Chloride (Normal Saline 0.9%) 1,000 mls @ 83 mls/hr IV .Q12H3M [facility] Last Infusion: 09/21/23 06:56 Dose: 83 mls/hr Insulin Human Lispro (Insulin Lispro 300 Unit/3 Ml Pen) 3 - 11 unit SUBQ 0800,1200,1700,2100 [facility]; Protocol Last Admin: 09/21/23 08:14 Dose: Not Given Metoprolol Succinate (Metoprolol Succinate 50 Mg Tablet) 50 mg PO BID [facility] Last Admin: 09/21/23 08:22 Dose: 50 mg Ondansetron HCl (Ondansetron Odt 4 Mg Tablet) 4 mg TL Q6HR PRN PRN Reason: Nausea / Vomiting Oxycodone HCl (Oxycodone 5 Mg Tablet) 5 mg PO Q4HR PRN PRN Reason: Pain 5 to 7 Prochlorperazine Edisylate (Prochlorperazine 10 Mg/2 Ml Vial) 10 mg IVP Q6HR PRN PRN Reason: Nausea / Vomiting Sodium Chloride (Sodium Chloride Flush 0.9% 10 Ml Syringe) 10 ml IVP PRN PRN PRN Reason: NEEDED PER PROVIDER ORDERS Sodium Chloride (Sodium Chloride Flush 0.9% 10 Ml Syringe) 10 ml IVP 0100,0900,1700 [facility] Last Admin: 09/21/23 08:22 Dose: 10 ml Tamsulosin HCl (Tamsulosin 0.4 Mg Capsule) 0.4 mg PO DAILY [facility] Last Admin: 09/21/23 08:21 Dose: 0.4 mg Ascorbic Acid [Vitamin C] 500 mg PO DAILY 04/18/19 Cholecalciferol (Vitamin D3) [Vitamin D3] 1,000 units PO DAILY 04/18/19 Ginkgo Biloba [place] Extract [Ginkgo Biloba] 240 mg PO BID 04/18/19 Losartan Potassium 100 mg PO DAILY 04/18/19 Metoprolol Succinate 50 mg PO BID 04/18/19 Multivitamin [Theragran] 1 tab PO DAILY 04/18/19 Saw [place] 1 cap PO DAILY 04/18/19 Aspirin [[place] Aspirin] 81 mg PO DAILY 09/19/23 Chlorthalidone 25 mg PO DAILY 09/20/23 Omeprazole 40 mg PO BIDWM 09/20/23 SITagliptin [Januvia] 100 mg PO DAILY 09/20/23
[2023-09-22 08:05] LABS: BASOPHILS % (AUTO) 0.5 %; EOSINOPHILS # (AUTO) 0.1 10^3/uL (0.0-0.7); EOSINOPHILS % (AUTO) 1.6 %; HCT - HEMATOCRIT 24.7 % (42.0-52.0); HGB - HEMOGLOBIN 8.3 g/dL (14.0-18.0); LYMPHOCYTES # (AUTO) 1.2 10^3/uL (1.5-3.5); LYMPHOCYTES % (AUTO) 19.5 %; MEAN CORPUSCULAR HEMOGLOBIN 29.7 pg (27.0-31.0); MEAN CORPUSCULAR HGB CONC 33.6 g/dL (32.0-36.0); MEAN CORPUSCULAR VOLUME 88.5 fL (80.0-94.0); MEAN PLATELET VOLUME 10.1 fL (7.4-11.4); MONOCYTES # (AUTO) 0.5 10^3/uL (0.0-1.0); MONOCYTES % (AUTO) 8.3 %; NEUTROPHILS # (AUTO) 4.3 10^3/uL (1.5-6.6); NEUTROPHILS % (AUTO) 69.6 %; PLT - PLATELET COUNT 187 10^3/uL (130-450); RED BLOOD COUNT 2.79 10^6/uL (4.70-6.10); RED CELL DISTRIBUTION WIDTH 13.1 % (12.0-15.0); WHITE BLOOD COUNT 6.2 x10^3/uL (4.8-10.8)
[2023-09-22] MEDS: INSULIN GLARGINE-YFGN 300 UNIT/3 ML PEN SUBQ SCH (08:11)
[2023-09-22 08:25] LABS: CALCIUM 9.3 mg/dL (8.5-10.3); CREATININE 1.3 mg/dL (0.6-1.3); POTASSIUM 3.7 mmol/L (3.5-4.5)
--- NOTE | 2023-09-22 08:36 | PROVIDER PROGRESS NOTE ---
Progress Note General Surgery Progress Note Marc is comfortable and has not yet had a bowel motion. His Hgb is above 8 gm/dL. He would like something to eat other than full liquids and is anxious to go home. I recommend that we start a general diet (he is lactose intolerant) and give him a single dose of Miralax this morning. If he tolerates the diet and remains hemodynamically stable, discharge later today would be reasonable. John Guzman MD, [facility] General Surgery Serve
[2023-09-22] MEDS: polyethylene glycoL 3350 17 GM PACKET PO ONE (10:41)
--- NOTE | 2023-09-22 11:11 | ADVANCE CARE PLANNING NOTE ---
Advance Care Planning - Planning Encounter Date: 09/22/23 Time: 11:11 Purpose: codify code status with POLST Parties in Attendance: hospitalist and patient Decisional Capacity of the Patient: Oriented to person, place, time and situation. - Encounter Subjective/Patient's Story: He is a summer gentleman who lives with a good friend Nick. Nick is also his godson. Nick Rojas is his DPOA and POA. [phone]. The patient is fully able to take care of himself. He is ambulatory, independent, able to grocery shop, cook for himself take care of himself. He needs help with yard work and with grocery shopping. But when Nick is out of town for work he is perfectly self-sufficient. He had a history of angina resulting in coronary stents in 2010. Ever since then he is just notices subtle fatigue that is always present. But no congestive heart failure history. He is always dizzy. No history of falls. No incontinence. He just describes getting older, and knowing that he will need further help down the road. He is very grateful to have his godson live with him. He also has multiple friends and describes an active social life. He tells me that he does want treatment when he gets sick. If he has another GI bleed he wants transfusions. If he needed to have surgery on his bowel he would want that. However, if you ever need a colectomy and need a colostomy bag he does not want that. He is willing to undergo a colectomy with primary anastomosis. He wants treatment for pneumonia, broken bones, and only if we treated him and he does not make it are we to let him go. He says that if he has no pulse or pressure he wants to be DNR. I pointed out to him that he has not followed up with his doctor for his lung mass. He does not quite have an explanation for what that is about but he promises to follow-up when he leaves the hospital this time. Objective/Medical Story: Mr. Spangler is an 82 year old male with a history of coronary disease (stented in 2010), remote cholecystectomy, chronic vertigo, lung mass seen on imaging last year which he has not followed up on, diverticulosis and a history of GI bleeding after hemorrhoidectomy 10 years ago. He first started noticing blood mixed with liquid stool starting on Wednesday 09/13. He states that blood in stool became less in volume until saturday (09/16) when his bloody stools resolved and he had 3 semi-formed non bloody stools. On he reports a reoccurrence of runny stool with bright red blood after eating a large meal. Since then he has had multiple episodes of runny stool with blood daily. He presented to the ED yesterday (09/18) for 5 days of bloody stools, abdominal pain and distention, and a sense of impending doom. In the ED he was hemodynamically stable but was having several episodes of active bloody bowel movements. His initial Hgb was 10.4 and after a few hours it was 9.2 and then [address] angiography of the belly consistent with a sigmoid probably diverticular bleed. At first the patient did not want repeat imaging of his chest but subsequently acquiesced, and showed similar tumor to last year and he was again encouraged to follow-up for this. The ER doctors discussed his case with on-call surgeon, Dr. Guzman who initially recommended transfer to a facility capable of IR. Patient was given PRBCs and IV morphine overnight. While waiting to be transferred to a facility Dr. Guzman decided Mr. Spangler was no longer a candidate for IR given the relatively slow decrease in blood count and stable vitals and recommended that he be admitted for continued monitoring, PRBCs as needed, and possible scope in a couple days. Today Mr. Spangler admits to having two bowel movements with soft stool and some blood. He reports that he has the sensation of abdominal fullness but denies any pain. - Past Medical History Cardiovascular: reports: Hypertension, High cholesterol, Coronary artery disease, [place] Respiratory: reports: COPD Neuro: reports: Migraines Endocrine/Autoimmune: reports: Type 2 diabetes GI: reports: GERD, GI bleed (Hx of GI bleed following hemorrhoidectomy 10 years ago), Other (Patient reports having diverticulosis diagnosed after scope many years ago) : reports: Benign prostate hypertrophy HEENT: reports: Other (Cataracts) Psych: reports: None Musculoskeletal: reports: None Derm: reports: None MRSA Hx?: No - Past Surgical History General: reports: Cholecystectomy, Colonoscopy, EGD Cardiovascular: reports: Coronary stent Goals of Care: He wants to remain in his home. He never wants to be in an assisted living facility or prison. He wants to actively work to staying alive for as long as possible. Plan: POLST form filled out for DO NOT RESUSCITATE status. Original given to patient and copy placed in EMR Encouraged to follow through with his primary care provider for the lung mass. He will also need follow-up for his GI bleed and a repeat hemoglobin. It is attributed to diverticular bleeding. The patient stated he never wanted a colostomy or colectomy but would be willing to undergo a colonoscopy or interventional radiology embolization. Code Status: Do Not Attempt Resuscitation Time spent on advance care plannin minutes
--- NOTE | 2023-09-22 11:38 | DISCHARGE SUMMARY ---
"Discharge Summary Admit Date: 09/20/23 Discharge Date: 09/22/23 Discharging Provider: Naomi Lira MD Primary Care Provider: IDA Quinones Code Status: Do Not Attempt Resuscitation Condition at Discharge: Stable Discharge Disposition: 01 Home, Self Care - DIAGNOSES Discharge Diagnoses with Status of Each Condition: 1 lower GI bleed 2. Severe diverticulosis 3. Acute blood loss anemia 4. Lung mass 5. Type 2 diabetes mellitus, controlled, without long-term use of insulin 6. Hypertension - HPI History of Present Illness: Mr. Spangler is an 82 year old male with a history of coronary disease (stented in 2010), remote cholecystectomy, chronic vertigo, lung mass seen on imaging last year which he has not followed up on, diverticulosis and a history of GI bleeding after hemorrhoidectomy 10 years ago. He first started noticing blood mixed with liquid stool starting on Wednesday 09/13. He states that blood in stool became less in volume until saturday (09/16) when his bloody stools resolved and he had 3 semi-formed non bloody stools. On he reports a reoccurrence of runny stool with bright red blood after eating a large meal. Since then he has had multiple episodes of runny stool with blood daily. He presented to the ED yesterday (09/18) for 5 days of bloody stools, abdominal pain and distention, and a sense of impending doom. In the ED he was hemodynamically stable but was having several episodes of active bloody bowel movements. His initial Hgb was 10.4 and after a few hours it was 9.2 and then [address] a [address] angiography of the belly consistent with a sigmoid probably diverticular bleed. At first the patient did not want repeat imaging of his chest but subsequently acquiesced, and showed similar tumor to last year and he was again encouraged to follow-up for this. The ER doctors discussed his case with on-call surgeon, Dr. Guzman who initially recommended transfer to a facility capable of IR. Patient was given PRBCs and IV morphine overnight. While waiting to be transferred to a facility Dr. Guzman decided Mr. Spangler was no longer a candidate for IR given the relatively slow decrease in blood count and stable vitals and recommended that he be admitted for continued monitoring, PRBCs as needed, and possible scope in a couple days. Today Mr. Spangler admits to having two bowel movements with soft stool and some blood. He reports that he has the sensation of abdominal fullness but denies any pain. - Past Medical History Cardiovascular: reports: Hypertension, High cholesterol, Coronary artery dis ease, [place] Respiratory: reports: COPD Neuro: reports: Migraines Endocrine/Autoimmune: reports: Type 2 diabetes GI: reports: GERD, GI bleed (Hx of GI bleed following hemorrhoidectomy 10 years ago), Other (Patient reports having diverticulosis diagnosed after scope many years ago) : reports: Benign prostate hypertrophy HEENT: reports: Other (Cataracts) Psych: reports: None Musculoskeletal: reports: None Derm: reports: None MRSA Hx?: No - Past Surgical History General: reports: Cholecystectomy, Colonoscopy, EGD Cardiovascular: reports: Coronary stent - CONSULTS | PROCEDURES Procedures: CT of the chest with a spiculated cavitary mass within the right middle lobe that is growing since October 2022. Recommend PET/CT or CT-guided biopsy. No me diastinal or hilar adenopathy. Abdomen pelvis CT with concerning signs of sigmoid colon GI bleed, marked prostatic megaly, diverticulosis without diverticulitis. - HOSPITAL COURSE Hospital Course: He comes in with over 5 days of lower GI bleeding. Needed 3 units of blood transfused. He is bleeding briskly enough that we wanted to transfer him for interventional radiology but there were no beds. We reluctantly admitted him to [facility]. He is adamant he does not want a colectomy. But he is interested in seeing radiology for interventional procedure if possible. Bleeding finally stopped. And hemoglobin remained stable. He is stable for discharge. But I told him that if he starts bleeding again he really should go to the [facility] because our surgeons only have colectomy to offer if he hemorrhages again. He needs follow-up for lung mass. He has had it for over a year. It is spiculated. It is growing. He would at least like to see an oncologist to see his options. During his stay advance care planning conversation and he is a DO NOT RE SUSCITATE with POLST form filled out At discharge temperature was 36.5. Heart rate 89. Blood pressure 142/72. Respirations 18. 97% on room air. He is 5 foot 3 inches tall, 68 kg. Shotty neck adenopathy 3 with a low hoarse voice. Lungs are clear. Regular rate and rhythm. The abdomen is soft, nontender with normal bowel sounds. Hemoglobin at discharge was 8.5. Extremities had no edema. Last bowel movement was September 21. He is hard of hearing. Able to ambulate in his room from bed to bathroom. Greater than 30 minutes spent coordinating discharge This document was made in part using voice recognition software. While efforts are made to proofread this document, sound alike and grammatical errors may occur. - ALLERGIES Allergies/Adverse Reactions: Allergies Allergy/AdvReac Type Severity Reaction Status Date / Time eptifibatide Allergy Unknown Verified 09/19/23 15:55 [From Integrilin] oxycodone Allergy Unknown Verified 09/19/23 15:55 Sulfa (Sulfonamide Allergy Unknown Verified 09/19/23 15:55 Antibiotics) atorvastatin AdvReac Cramps Verified 09/20/23 12:36 - MEDICATIONS Home Medications: Ambulatory Orders Medication Instructions Recorded Confirmed Ascorbic Acid [Vitamin C] 500 mg PO DAILY 04/18/19 09/19/23 Cholecalciferol (Vitamin D3) 1,000 units PO DAILY 04/18/19 09/19/23 [Vitamin D3] Ginkgo Biloba [place] Extract [Ginkgo 240 mg PO BID 04/18/19 09/19/23 Biloba] Losartan Potassium 100 mg PO DAILY 04/18/19 09/20/23 Metoprolol Succinate 50 mg PO BID 04/18/19 09/20/23 Multivitamin [Theragran] 1 tab PO DAILY 04/18/19 09/19/23 Saw [place] 1 cap PO DAILY 04/18/19 09/19/23 Ferrous Sulfate 325 mg PO DAILY #30 tablet 04/19/19 09/19/23 Aspirin [[place] Aspirin] 81 mg PO DAILY 09/19/23 09/19/23 Chlorthalidone 25 mg PO DAILY 09/20/23 09/20/23 Omeprazole 40 mg PO BIDWM 09/20/23 09/20/23 SITagliptin [Januvia] 100 mg PO DAILY 09/20/23 09/20/23 - LABS Result Diagrams: 09/22/23 12:50 09/22/23 07:58"
[2023-09-22 12:53] LABS: HCT - HEMATOCRIT 25.5 % (42.0-52.0); HGB - HEMOGLOBIN 8.5 g/dL (14.0-18.0)
--- NOTE | 2023-09-22 13:12 | Discharge Plan ---
Discharge Plan Problem Reviewed?: Yes Disposition: Home, Self Care Condition: Stable Diet: Regular Activity Restrictions: Activity as Tolerated Shower Restrictions: No Driving Restrictions: No Health Concerns: You have a history of diverticulosis with previous lower GI bleeding after hemorrhoidectomy 10 years ago and came to the hospital because you are having bloody stools. You came to the emergency room with a 5-day history of the bloody stools with abdominal pain and distention. Because you are bleeding so briskly, the surgeon that day felt that you should be transferred to another hospital to have a radiological intervention. Radiologist would plug up the artery that was bleeding without needing surgery. However there were no beds available and you sat on the emergency room for a day or 2. Your bleeding slowed down and the surgeon felt that you could not come into the hospital without having to be transferred. You stayed with this a few more days. Your bleeding gradually slowed down and has stopped. You have received a total of 3 units of packed red cells to maintain your hemoglobin. A normal hemoglobin in a man is 13 or 14. You were 1 4.8 in May 2023. But all of 2018 you were 9.5 or 10.1. In 2019 you even were as low as 6.3. You are severely iron deficient so we gave you an iron infusion. Now that you have stopped bleeding, we feel you are stable to go home. Been able to eat a normal diet. No abdominal pain. No fever. And no bleeding.While you have been with this, you did tell us that you never wanted bowel resection. He would never want a colectomy. That you would rather before you did that. This led to a conversation on resuscitation. While you want many procedures done to you to keep you alive, you do not want to be resuscitated if you do not have a pulse or pressure. As such we filled out a POLST form where you are DO NOT RESUSCITATE. Plan of Treatment: 1. Please see your primary care provider in follow-up and you should have a CBC done to make sure your hemoglobin is staying stable. 2. If you really are serious about not ever having your bowel resected for ble eding, if you bleed again you might want to consider going to [facility] or [facility] a few have bright red blood per rectum again. That is a visit emergency. They have the ability to do the special interventional radiology procedures to avoid surgery. We do not. 3. I have given you a POLST form. And kept a copy for us here in the hospital. Assessment: Patient is alert, oriented to person place and time and situation. No Smoking: If you smoke, Please STOP! Call for help.
[2023-09-22 13:41] VITALS: BP 142/72; O2SAT 97
== END 2023-09-22 17:15 | disposition home or self-care (01) | DRG 378 ==
LOC: ED 14:24 → MS2 09-20 08:43 → OBSVTOIN 09-21 15:07
PROVIDERS: ADMIT Specialist; ATTEND Specialist
DX: K92.1 Melena (principal); K57.31 Diverticulosis of large intestine without perforation or abscess with bleeding; E11.9 Type 2 diabetes mellitus without complications; D62 Acute posthemorrhagic anemia; R91.8 Other nonspecific abnormal finding of lung field; I10 Essential (primary) hypertension; E78.00 Pure hypercholesterolemia, unspecified; I25.10 Atherosclerotic heart disease of native coronary artery without angina pectoris; I25.2 Old myocardial infarction; J44.9 Chronic obstructive pulmonary disease, unspecified; K21.9 Gastro-esophageal reflux disease without esophagitis; N40.0 Benign prostatic hyperplasia without lower urinary tract symptoms; E11.36 Type 2 diabetes mellitus with diabetic cataract; Z95.5 Presence of coronary angioplasty implant and graft; Z79.82 Long term (current) use of aspirin; Z79.84 Long term (current) use of oral hypoglycemic drugs; Z90.49 Acquired absence of other specified parts of digestive tract
CPT/HCPCS: 36415; 71260; 74174; 80048; 80053; 81003; 83690; 85014; 85018; 85025; 85027; 86850; 86900; 86901; 86920; A9270; J1815; P9016; Q9967; 36430; 81001; 87086; 96361; 96374; 99285

== ENCOUNTER 2024-02-02 17:12 | Emergency (ER) | payer MEDICARE, BC ==
[2024-02-02 17:52] LABS: BILIRUBIN,URINE NEGATIVE (NEGATIVE); GLUCOSE, URINE (UA) >=1000 mg/dL (NEGATIVE); KETONES,URINE (UA) NEGATIVE (NEGATIVE); LEUKOCYTE ESTERASE, URINE MODERATE (NEGATIVE); NITRITE,URINE NEGATIVE (NEGATIVE); OCCULT BLOOD,URINE LARGE (NEGATIVE); PH,URINE 5.5 PH (5.0-7.5); PROTEIN,URINE 100 mg/dL (NEGATIVE); UROBILINOGEN,URINE 0.2 (NORMAL) E.U./dL (NORMAL)
[2024-02-02 17:55] LABS: BASOPHILS # (AUTO) 0.1 10^3/uL (0.0-0.1); BASOPHILS % (AUTO) 0.6 %; EOSINOPHILS % (AUTO) 0.3 %; HCT - HEMATOCRIT 42.5 % (42.0-52.0); HGB - HEMOGLOBIN 13.7 g/dL (14.0-18.0); LYMPHOCYTES # (AUTO) 1.4 10^3/uL (1.5-3.5); LYMPHOCYTES % (AUTO) 15.5 %; MEAN CORPUSCULAR HGB CONC 32.2 g/dL (32.0-36.0); MEAN CORPUSCULAR VOLUME 83.8 fL (80.0-94.0); MEAN PLATELET VOLUME 10.3 fL (7.4-11.4); MONOCYTES # (AUTO) 0.5 10^3/uL (0.0-1.0); MONOCYTES % (AUTO) 6.2 %; NEUTROPHILS # (AUTO) 6.7 10^3/uL (1.5-6.6); NEUTROPHILS % (AUTO) 76.8 %; PLT - PLATELET COUNT 319 10^3/uL (130-450); RED BLOOD COUNT 5.07 10^6/uL (4.70-6.10); RED CELL DISTRIBUTION WIDTH 13.2 % (12.0-15.0); WHITE BLOOD COUNT 8.7 x10^3/uL (4.8-10.8)
[2024-02-02 17:59] LABS: CLARITY,URINE CLOUDY (CLEAR)
[2024-02-02 18:08] LABS: ALBUMIN 3.7 g/dL (3.2-5.5); ALBUMIN/GLOBULIN RATIO 1.1 (1.0-2.2); BILIRUBIN,TOTAL 0.7 mg/dL (0.2-1.0); CALCIUM 9.9 mg/dL (8.5-10.3); CREATININE 1.8 mg/dL (0.6-1.3); POTASSIUM 4.2 mmol/L (3.5-4.5); TOTAL PROTEIN 7.2 g/dL (6.4-8.9)
[2024-02-02 18:10] LABS: BACTERIA,URINE Few /HPF (None Seen); RBC,URINE TNTC /HPF (0-5); SQUAMOUS EPITHELIAL CELL,UR NONE SEEN (<= Few); WBC,URINE >25 /HPF (0-3)
[2024-02-02 18:30] LABS: VBG BASE EXCESS 2.5 mmol/L (-2 - +2); VBG OXYGEN SATURATION 93.6 % (60-80); VBG PCO2 41.4 mmHg (41-51); VBG PH 7.432 (7.31-7.41); VBG PO2 64.2 mmHg (25-47); VBG TOTAL CO2 28.3 mmol/L (24-29)
--- NOTE | 2024-02-02 18:34 | ED Physician Documentation ---
PD HPI MALE - Stated complaint Stated Complaint: - Chief complaint Chief Complaint: Abd Pain - Additional information Additional information: 83-year-old male with history of known bladder infections, poorly controlled type 2 diabetes, coronary artery disease, known mass to right lung that he is not pursuing intervention for presents emergency department for dysuria and difficulty voiding. Patient is here with his son who is his caregiver he says that they want limited intervention if there is a urinary Tract infection the main goal is to just be on antibiotics. He started noticing this about 2 days ago no fevers or chills denies flank pain or back pain. Patient says that when he voids he is starting to feel pain in his rectum. PD PAST MEDICAL HISTORY - Past Medical History Past Medical History: Yes Cardiovascular: Hypertension, High cholesterol, Coronary artery disease, [place] Respiratory: COPD Neuro: Migraines Endocrine/Autoimmune: Type 2 diabetes GI: GERD, GI bleed, Other : Benign prostate hypertrophy HEENT: Other Psych: None Musculoskeletal: None Derm: None - Past Surgical History Past Surgical History: Yes General: Cholecystectomy, Colonoscopy, EGD Cardiovascular: Coronary stent - Present Medications Home Medications: Ambulatory Orders Medication Instructions Recorded Confirmed Ascorbic Acid [Vitamin C] 500 mg PO DAILY 04/18/19 09/19/23 Cholecalciferol (Vitamin D3) 1,000 units PO DAILY 04/18/19 09/19/23 [Vitamin D3] Ginkgo Biloba [place] Extract [Ginkgo 240 mg PO BID 04/18/19 09/19/23 Biloba] Losartan Potassium 100 mg PO DAILY 04/18/19 09/20/23 Metoprolol Succinate 50 mg PO BID 04/18/19 09/20/23 Multivitamin [Theragran] 1 tab PO DAILY 04/18/19 09/19/23 Saw [place] 1 cap PO DAILY 04/18/19 09/19/23 Ferrous Sulfate 325 mg PO DAILY #30 tablet 04/19/19 09/19/23 Aspirin [[place] Aspirin] 81 mg PO DAILY 09/19/23 09/19/23 Chlorthalidone 25 mg PO DAILY 09/20/23 09/20/23 Omeprazole 40 mg PO BIDWM 09/20/23 09/20/23 SITagliptin [Januvia] 100 mg PO DAILY 09/20/23 09/20/23 levoFLOXacin [Levofloxacin] 500 mg PO DAILY 9 Days #9 tablet 02/02/24 - Allergies Allergies/Adverse Reactions: Allergies Allergy/AdvReac Type Severity Reaction Status Date / Time eptifibatide Allergy Unknown Verified 02/02/24 17:16 [From Integrilin] oxycodone Allergy Unknown Verified 02/02/24 17:16 Sulfa (Sulfonamide Allergy Unknown Verified 02/02/24 17:16 Antibiotics) atorvastatin AdvReac Cramps Verified 02/02/24 17:16 - Social History Does the pt smoke?: No Smoking Status: Never smoker Does the pt drink ETOH?: Yes Does the pt have substance abuse?: No - Immunizations Immunizations are current?: Yes - POLST Patient has POLST: No POLST Status: Full Code PD ED PE NORMAL - Vitals Vital signs reviewed: Yes - General General: Alert and oriented X 3, No acute distress, Well developed/nourished - Abdomen Abdomen: Normal bowel sounds, Soft, Non distended, No organomegaly, Other (suprapubic tenderness) - Back Back: No CVA TTP - Derm Derm: Normal color, Warm and dry, No rash - Extremities Extremities: No deformity, No tenderness to palpate, No edema, No calf tenderness / cord - Psych Psych: Normal mood Results - Vitals Vitals: Vital Signs - 24 hr 02/02/24 02/02/24 17:17 19:07 Temperature 36.8 C 36.8 C Heart Rate 86 85 Respiratory 16 16 Rate Blood Pressure 148/65 H 134/72 H O2 Saturation 99 97 Oxygen O2 Source Room air - Labs Labs: Microbiology 02/02/24 17:35 Urine Culture - Preliminary Urine,Clean Catch Laboratory Tests 02/02/24 02/02/24 02/02/24 17:35 17:47 17:47 WBC 8.7 RBC 5.07 Hgb 13.7 L Hct 42.5 MCV 83.8 MCH 27.0 MCHC 32.2 RDW 13.2 Plt Count 319 MPV 10.3 Neut # (Auto) 6.7 H Lymph # (Auto) 1.4 L [place] # (Auto) 0.5 Eos # (Auto) 0.0 Baso # (Auto) 0.1 Absolute Nucleated RBC 0.00 Nucleated RBC % 0.0 VBG pH VBG pCO2 VBG pO2 VBG HCO3 VBG Total CO2 VBG O2 Saturation VBG Base Excess Sodium 129 L Potassium 4.2 Chloride 93 L Carbon Dioxide 28 Anion Gap 8.0 BUN 34 H Creatinine 1.8 H Estimated GFR (MDRD) 36 L Glucose 516 H* Calcium 9.9 Total Bilirubin 0.7 AST 12 ALT 11 Alkaline Phosphatase 81 Total Protein 7.2 Albumin 3.7 Globulin 3.5 Albumin/Globulin Ratio 1.1 Lipase 33 Urine Color DARK YELLOW Urine Clarity CLOUDY Urine pH 5.5 Ur Specific [place] 1.020 Urine Protein 100 H Urine Glucose (UA) >=1000 H Urine Ketones NEGATIVE Urine Occult Blood LARGE H Urine Nitrite NEGATIVE Urine Bilirubin NEGATIVE Urine Urobilinogen 0.2 (NORMAL) Ur Leukocyte Esterase MODERATE H Urine RBC TNTC H Urine WBC >25 H Ur Squamous Epith Cells NONE SEEN Urine Bacteria Few Ur Microscopic Review INDICATED Urine Culture Comments INDICATED Serum Ketones 02/02/24 02/02/24 17:47 18:20 WBC RBC Hgb Hct MCV MCH MCHC RDW Plt Count MPV Neut # (Auto) Lymph # (Auto) [place] # (Auto) Eos # (Auto) Baso # (Auto) Absolute Nucleated RBC Nucleated RBC % VBG pH 7.432 H VBG pCO2 41.4 VBG pO2 64.2 H VBG HCO3 27.0 VBG Total CO2 28.3 VBG O2 Saturation 93.6 H VBG Base Excess 2.5 H Sodium Potassium Chloride Carbon Dioxide Anion Gap BUN Creatinine Estimated GFR (MDRD) Glucose Calcium Total Bilirubin AST ALT Alkaline Phosphatase Total Protein Albumin Globulin Albumin/Globulin Ratio Lipase Urine Color Urine Clarity Urine pH Ur Specific [place] Urine Protein Urine Glucose (UA) Urine Ketones Urine Occult Blood Urine Nitrite Urine Bilirubin Urine Urobilinogen Ur Leukocyte Esterase Urine RBC Urine WBC Ur Squamous Epith Cells Urine Bacteria Ur Microscopic Review Urine Culture Comments Serum Ketones NEGATIVE PD Medical Decision Making - ED course ED course: 83-year-old male presents emergency department for dysuria. Labs are complete for further evaluation he was quite concerned about possible anemia as he has had history of GI bleeds in the past no recent melanotic stools and hemoglobin hematocrit are within normal limits. Urinalysis was complete and patient did appear to have a urinary tract infection with leukocytes and nitrites upon chart review patient has been treated for urinary tract infection in the past with levofloxacin patient is requesting to be restarted on the same antibiotics. He was started on levofloxacin here in the emergency department prescription was sent to his preferred pharmacy. He was also found to be quite hyperglycemic blood glucose 516 we discussed doing some subcutaneous insulin here in the emergency department and he adamantly declined said that he has glucometer at home and will monitor his blood sugar at home and avoid any carbs or sugars tonight. Sodium was on the lower side at 129 he has had hyponatremia in the past he has no dizziness or symptoms of hyponatremia. He does appear to have a acute kidney injury but he denies any CVA tenderness or discomfort, patient said that he really wanted minimal workup and minimal intervention they are given return precautions if he changes mind he is here with his son who is his caregiver. I offered to do some IV fluids and CT scan but pt declined. Departure - Departure Disposition: Home, Self Care Clinical Impression: UTI (urinary tract infection) Instructions: ED UTI Cystitis Male Prescriptions: levoFLOXacin [Levofloxacin] 500 mg PO DAILY 9 Days #9 tablet Comments: Thank you for trusting us with your care. We have sent your urine for cultures and further evaluation we will call you in a couple days if need to change antibiotics. I looked at your previous notes and it appears that you were prescribed levofloxacin in the past for your urinary tract infection. We have given you the first dose here in the emergency department and I sent an additional prescription of 9 more days of levofloxacin to preferred pharmacy. If after 2 days of taking these antibiotics you have no improvement of symptoms please follow-up with your primary care provider soon as possible for further evaluation or come back to the emergency department. Your labs are very stable you have no anemia. Of note your blood sugar was quite elevated in the emergency department and it was 516 this is also something on follow-up with your primary care provider about maybe adjusting medications to bring her blood sugar down. This could also be due to infection. Forms: PCP List Discharge Date/Time: 02/02/24 19:07
[2024-02-02] MEDS: levoFLOXacin 250 MG TABLET PO STA (19:02)
[2024-02-02 19:17] VITALS: BP 134/72; O2SAT 97
== END 2024-02-02 19:07 | disposition home or self-care (01) ==
LOC: ED 17:12
DX: N39.0 Urinary tract infection, site not specified (principal); E11.65 Type 2 diabetes mellitus with hyperglycemia; Z79.84 Long term (current) use of oral hypoglycemic drugs
CPT/HCPCS: 36415; 80053; 81001; 82009; 82803; 83690; 85025; 87077; 87086; 87181; 99283; 99284; A9270; 81003